=== PATIENT | male | born 1945 | race Two or more races ===

== ENCOUNTER → 2016-11-10 | Outpatient (CLI) | payer OTHER ==
--- NOTE | 2016-11-10 08:51 | KCIC ---
MRI Cervical Spine Without Contrast History: Degenerative disc disease of cervical spine, neck pain with right radiculopathy for 3 to 4 years Technique: Multiplanar, multi sequential noncontrast MR imaging was performed of the cervical spine. Comparison: None FINDINGS: There is some motion degradation most notable for axial images which somewhat limits accurate characterization of the neural foramina. There is grade 1 anterior spondylolisthesis C3-4, C5-C6, and C7-T1. Cervical vertebral body stature is overall adequate. There is advanced narrowing of the C4-5 intervertebral disc space at which is likely partial interbody fusion. There is also advanced degenerative disc disease at C6-7 and minimally at C5-C6 and C4-5. Cervical cord is not expanded. There is mild increased T2 and STIR signal abnormality of the cord at the C4-5 level without cord expansion, somewhat more defined appearance. There is no significant abnormality of the cervical medullary junction. There is mild cervical levoscoliosis. C2-C3: There is mild facet degenerative change. Spinal canal and neural foramina are adequate. C3-C4: There is partial uncovering of the posterior aspect of the disc due to spondylolisthesis with superimposed broad bulge/protrusion which extends slightly above the intervertebral disc space. There is buckling of the ligamentum flavum. There is effacement of ventral subarachnoid space and contact of the cord greater in the left lateral recess. Central canal is narrowed to 6 mm. There is bilateral facet ypertrophic change. There is fairly severe left and moderate to severe right neural foramina compromise. C4-C5: There are prominent posterior osteophytes which indent the ventral thecal sac, effacement of ventral subarachnoid space near ventral surface of cord. Central canal is narrowed to 7 mm. Right neural foramen is overall adequate. There is moderate to severe narrowing of the left neural foramen by osteophytes. C5-C6: There is posterior annular tear. There is very minimal posterior bulge. Central canal is borderline 10 mm. There is moderate to severe narrowing of the right neural foramen by osteophytes, left neural foramen overall adequate. C6-C7: There is fairly broad posterior protrusion. Central canal is minimally narrowed to 9 mm. There is moderate to severe narrowing left neural foramen with protrusion at the anterior margin proximally, also moderate to severe narrowing of the right neural foramen. C7-T1: Spinal canal and neural foramina are adequate. There is facet degenerative change. Impression: 1. There is advanced degenerative disc disease C6-7, also advanced narrowing of the C4-5 intervertebral disc space at which there is likely partial interbody fusion. 2. There is spinal stenosis to 6 mm at C3-4 with contact of the cord greater in the left lateral recess. There is slightly lesser degree of spinal stenosis at C4-5 by prominent posterior osteophytes, also mild spinal stenosis C6-7. 3. There is multilevel neural foramina compromise due to facet and uncovertebral degenerative change including more significant narrowing bilaterally at C3-4 and C6-7, on the left at C4-5, and on the right at C5-C6. 4. There is grade 1 anterior spondylolisthesis C3-4, C5-C6, and C7-T1. There is multilevel facet degenerative change. Electronically signed by: Carlito Baez MD (11/10/2016 8:47 AM) [facility]
== END | disposition home or self-care (01) ==
LOC: KCIC MRI 07:54
PROVIDERS: ATTEND Nurse Practitioner Gerontology
DX: M54.12 Radiculopathy, cervical region (principal); M50.323 Other cervical disc degeneration at C6-C7 level; M50.322 Other cervical disc degeneration at C5-C6 level; M50.321 Other cervical disc degeneration at C4-C5 level; M48.02 Spinal stenosis, cervical region; M43.12 Spondylolisthesis, cervical region
CPT/HCPCS: 72141

== ENCOUNTER → 2017-01-02 | Outpatient (CLI) | payer MEDICARE, OTHER ==
[~2017-01-02] MED LIST: ALLO100T PO; AMLO5TAB2 PO; ASPI-482 PO; CARV6.25 PO; ESCITALOPRAM OX10 MG PO; FAMO40TA4 PO; FAMO40TA57 PO; GABA-585 PO; OXYC-323 PO; SIMV10TA3 PO; TRIA15OI TP
[2017-01-02 11:35] LABS: BASO # 0.1 x10^3/uL (0.0-0.2); BASO % 1 % (0-3); EOS % 6 % (0-3); HEMOGLOBIN 13.1 g/dL (13.0-17.5); LYMPH # 2.2 x10^3/uL (1.0-4.8); LYMPH % 35 % (24-48); MEAN CORPUSCULAR HEMOGLOBIN 29 pg (25-35); MEAN CORPUSCULAR HGB CONC 32 g/dL (31-37); MEAN CORPUSCULAR VOLUME 90 fL (79-100); MONO % 8 % (0-9); NEUT % 50 % (31-73); PLATELET COUNT 248 x10^3/uL (140-400); RED BLOOD COUNT 4.55 x10^6/uL (4.30-5.70); RED CELL DISTRIBUTION WIDTH 14.6 % (11.5-14.5); WHITE BLOOD COUNT 6.4 x10^3/uL (4.0-11.0)
[2017-01-02 11:51] LABS: ALBUMIN 3.7 g/dL (3.4-5.0); ALBUMIN/GLOBULIN RATIO 0.8 (1.0-1.7); CALCIUM 9.2 mg/dL (8.5-10.1); CREATININE 1.3 mg/dL (0.7-1.3); GFR 54.1; POTASSIUM 4.1 mmol/L (3.5-5.1); TOTAL BILIRUBIN 0.4 mg/dL (0.2-1.0); TOTAL PROTEIN 8.4 g/dL (6.4-8.2)
[2017-01-02 11:54] LABS: PROTHROMBIN TIME PATIENT 12.5 SEC (11.7-14.0)
== END | disposition home or self-care (01) ==
LOC: SURGPAT 08:45
PROVIDERS: ATTEND Neurological Surgery
DX: Z01.818 Encounter for other preprocedural examination (principal); M48.02 Spinal stenosis, cervical region
CPT/HCPCS: 36415; 80053; 85025; 85610; 85730; 87641

== ENCOUNTER 2017-01-06 06:48 | Day surgery (SDC) | payer OTHER ==
[~2017-01-06] VITALS: Ht 167.6 cm; Wt 56.7 kg
[~2017-01-06 06:48] MED LIST changes: +BACITRACIN 50,000 UNIT in IV NORMAL SALINE 1000ML BAG 1,000 ML IRR ONE; +BUPIVACAINE-EPI 0.25%-1:200000 MPF 30 ML VIAL. ONE; +GELATIN SPONGE SIZE 100. ONE; +THROMBIN TOPICAL 20,000 UNIT SPRAY.SYRN KIT TP ONE
[2017-01-06] MEDS ORDERED: IV RINGERS,LACTATED 1000ML 1,000 ML IV SCH (07:00)
[2017-01-06] MEDS ORDERED: fentaNYL PF VIAL 100 MCG/2 ML VIAL IV PRN ×2 (07:00)
[2017-01-06] MEDS ORDERED: LIDOCAINE 1% PF 2 ML VIAL. ID PRN (07:00)
[2017-01-06] MEDS ORDERED: PROCHLORPERAZINE 10 MG/2 ML VIAL. IV PRN (07:00)
[2017-01-06] MEDS ORDERED: fentaNYL PF VIAL 100 MCG/2 ML VIAL ONE (08:23)
[2017-01-06] MEDS ORDERED: SUCCINYLCHOLINE 200 MG/10 ML VIAL. ONE (08:23)
[2017-01-06] MEDS ORDERED: PROPOFOL 50 ML IV ONE (08:23)
[2017-01-06] MEDS ORDERED: PHENYLEPHRINE 10 MG/ML VIAL. ONE (08:23)
[2017-01-06] MEDS ORDERED: REMIFENTANIL 2 MG VIAL. IV ONE (08:23)
[2017-01-06] MEDS ORDERED: PROPOFOL 20 ML IV ONE (08:23)
[2017-01-06] MEDS ORDERED: LIDOCAINE 2% PF Vial for OR 5 ML VIAL. ONE (08:23)
[2017-01-06] MEDS ORDERED: ROCURONIUM 50 MG/5 ML VIAL. ONE (08:33)
[2017-01-06 10:00] VITALS: BP 160/85
== END 2017-01-06 10:26 | disposition home or self-care (01) ==
LOC: SURG 06:48
PROVIDERS: ATTEND Neurological Surgery
DX: M48.02 Spinal stenosis, cervical region (principal); Z53.8 Procedure and treatment not carried out for other reasons; E78.00 Pure hypercholesterolemia, unspecified; I10 Essential (primary) hypertension; K21.9 Gastro-esophageal reflux disease without esophagitis; M19.91 Primary osteoarthritis, unspecified site; F32.9 Major depressive disorder, single episode, unspecified; F17.200 Nicotine dependence, unspecified, uncomplicated; Z88.8 Allergy status to other drugs, medicaments and biological substances; Z86.39 Personal history of other endocrine, nutritional and metabolic disease
CPT/HCPCS: 82962; J0330; J2704; J0690; J3010; J3490; J7030; J2001

== ENCOUNTER 2018-05-03 19:59 | Inpatient (IN) | payer OTHER ==
[~2018-05-03] VITALS: Ht 152.4 cm; Wt 59.1 kg
[~2018-05-03 19:59] MED LIST changes: +ALPR0.254 PO; +AMLO5TAB10 PO; -AMLO5TAB2 PO; -BACITRACIN 50,000 UNIT in IV NORMAL SALINE 1000ML BAG 1,000 ML IRR ONE; -BUPIVACAINE-EPI 0.25%-1:200000 MPF 30 ML VIAL. ONE; +ESCITALOPRAM OX20 MG PO; -GELATIN SPONGE SIZE 100. ONE; +METR500T PO; -OXYC-323 PO; +OXYC1TAB15 PO; -THROMBIN TOPICAL 20,000 UNIT SPRAY.SYRN KIT TP ONE
--- NOTE | 2018-05-03 20:49 | PHYS DOC ---
Past Medical History Past Medical History: Anxiety, GERD, Other Additional Past Medical Histor: DDD, GOUT, BLIND, [place] (JEFFERY HILARIO APRN) Past Surgical History: Other Additional Past Surgical Histo: L. ARM AMPUTATION (JEFFERY HILARIO APRN) Alcohol Use: None Drug Use: None (JEFFERY HILARIO APRN) Adult General Chief Complaint Chief Complaint: UPPER EXTREMITY PAIN HPI HPI Pt speaks Hmong- family at bedside translating. Pt is legally blind per his family. 73 y/o male presents to ER via POV for c/o generalized aches and rt arm pain. Per family pt has not been eating or drinking and is more fatigued. They deny pt with recent falls/injury. Pt is denying CP, SOA, or dizziness. Pt c/o abd pain denies N/V/D. Pt is Rx'd pain medications which family reports he has taken in past 2-3 days with pt having increase c/o pain. He was given tylenol [employer] at home. They deny pt has had fever/lethargy. (JEFFERY HILARIO APRN) Review of Systems Review of Systems Constitutional: Denies fever or chills [] HENT: Denies nasal congestion or sore throat [] Respiratory: Denies cough or shortness of breath [] Cardiovascular: Denies CP GI: Denies nausea, vomiting, bloody stools or diarrhea. Reports abd pain : Denies dysuria or hematuria [] Musculoskeletal: Denies back pain. Reports generalized body aches and rt upper arm. Integument: Denies rash or skin lesions [] Neurologic: Denies headache, focal weakness or sensory changes [] Endocrine: Denies polyuria or polydipsia [] All other systems were reviewed and found to be within normal limits, except as documented in this note. (JEFFERY HILARIO APRN) Current Medications Current Medications Current Medications Medications (Trade) Dose Ordered Sig/Noelle Start Time Stop Time Status Last Admin Dose Admin Sodium Chloride 1,000 ml @ 1,000 mls/hr 1X ONCE 05/03/18 21:00 05/03/18 21:59 DC 05/03/18 21:12 1,000 MLS/HR (ADAN EPSTEIN MD) Allergies Allergies Allergies Coded Allergies Type Severity Reaction Last Updated Verified hydrocodone Allergy Intermediate Rash 01/06/17 Yes (ADAN EPSTEIN MD) Physical Exam Physical Exam Constitutional: Well developed, well nourished, restless during the exam, non- toxic appearance. Fatigued appearance HENT: Normocephalic, atraumatic, bilateral ears normal, mucous membranes pink/ dry nose normal. [] Eyes: Pt legally blind bilat. eyes- glazed corneal appearance bilat, conjunctiva normal, no discharge. [] Neck: Normal range of motion, no tenderness, supple, no stridor. [] Cardiovascular: Heart rate regular rhythm, no murmur [] Lungs & Thorax: Bilateral breath sounds clear to auscultation. Resp. equal/ nonlabored Abdomen: Bowel sounds normal, soft, no tenderness on palp Skin: Warm, dry, no erythema, no rash. [] Back: No tenderness, no CVA tenderness. [] Extremities: No cyanosis, no clubbing, decreased ROM in rt arm with pt c/o pain - no palp. deformity 2+ radial w/brisk cap refill, no edema. 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 per family, normal motor function, normal sensory function, no focal deficits noted. [] Psychologic: Affect normal, judgement normal, restless (REFFITT,JEFFERY Camp APRN) Current Patient Data Vital Signs Vital Signs Date Time Temp Pulse Resp B/P (MAP) Pulse Ox O2 Delivery O2 Flow Rate FiO2 05/03/18 21:56 86 18 161/84 (109) 98 Room Air 05/03/18 20:15 99.0 99.0 (ADAN EPSTEIN MD) Lab Values Laboratory Tests Test 05/03/18 20:40 05/03/18 20:47 05/03/18 20:53 Urine Collection Type Unknown Urine Color Yellow Urine Clarity Clear Urine pH 6.0 Urine Specific [place] 1.020 Urine Protein 100 mg/dL (NEG-TRACE) Urine Glucose (UA) Negative mg/dL (NEG) Urine Ketones (Stick) Negative mg/dL (NEG) Urine Blood Small (NEG) Urine Nitrite Negative (NEG) Urine Bilirubin Negative (NEG) Urine Urobilinogen Dipstick 0.2 mg/dL (0.2 mg/dL) Urine Leukocyte Esterase Negative (NEG) Urine RBC 3-5 /HPF (0-2) Urine WBC 1-4 /HPF (0-4) Urine Squamous Epithelial Cells Occ /LPF Urine Bacteria 0 /HPF (0-FEW) Urine Hyaline Casts Few /HPF Urine Mucus Slight /LPF White Blood Count 7.3 x10^3/uL (4.0-11.0) Red Blood Count 4.53 x10^6/uL (4.30-5.70) Hemoglobin 13.2 g/dL (13.0-17.5) Hematocrit 40.0 % (39.0-53.0) Mean Corpuscular Volume 88 fL (79-100) Mean Corpuscular Hemoglobin 29 pg (25-35) Mean Corpuscular Hemoglobin Concent 33 g/dL (31-37) Red Cell Distribution Width 15.6 % (11.5-14.5) H Platelet Count 250 x10^3/uL (140-400) Neutrophils (%) (Auto) 84 % (31-73) H Lymphocytes (%) (Auto) 14 % (24-48) L Monocytes (%) (Auto) 3 % (0-9) Eosinophils (%) (Auto) 0 % (0-3) Basophils (%) (Auto) 0 % (0-3) Neutrophils # (Auto) 6.1 x10^3uL (1.8-7.7) Lymphocytes # (Auto) 1.0 x10^3/uL (1.0-4.8) Monocytes # (Auto) 0.2 x10^3/uL (0.0-1.1) Eosinophils # (Auto) 0.0 x10^3/uL (0.0-0.7) Basophils # (Auto) 0.0 x10^3/uL (0.0-0.2) Sodium Level 139 mmol/L (136-145) Potassium Level 3.2 mmol/L (3.5-5.1) L Chloride Level 102 mmol/L (98-107) Carbon Dioxide Level 24 mmol/L (21-32) Anion Gap 13 (6-14) Blood Urea Nitrogen 13 mg/dL (8-26) Creatinine 1.5 mg/dL (0.7-1.3) H Estimated GFR (Cockcroft-Gault) 45.6 BUN/Creatinine Ratio 9 (6-20) Glucose Level 185 mg/dL (70-99) H Calcium Level 9.4 mg/dL (8.5-10.1) Magnesium Level 1.9 mg/dL (1.8-2.4) Total Bilirubin 0.7 mg/dL (0.2-1.0) Aspartate Amino Transferase (AST) 23 U/L (15-37) Alanine Aminotransferase (ALT) 12 U/L (16-63) L Alkaline Phosphatase 67 U/L (46-116) Troponin I Quantitative < 0.017 ng/mL (0.000-0.055) Total Protein 9.0 g/dL (6.4-8.2) H Albumin 3.8 g/dL (3.4-5.0) Albumin/Globulin Ratio 0.7 (1.0-1.7) L Influenza Type A Antigen Negative (NEGATIVE) Influenza Type B Antigen Negative (NEGATIVE) Laboratory Tests 05/03/18 20:47 Laboratory Tests 05/03/18 20:47 (ADAN EPSTEIN MD) Lab Values Laboratory Tests Test 05/03/18 20:40 05/03/18 20:47 05/03/18 20:53 Urine Collection Type Unknown Urine Color Yellow Urine Clarity Clear Urine pH 6.0 Urine Specific [place] 1.020 Urine Protein 100 mg/dL (NEG-TRACE) Urine Glucose (UA) Negative mg/dL (NEG) Urine Ketones (Stick) Negative mg/dL (NEG) Urine Blood Small (NEG) Urine Nitrite Negative (NEG) Urine Bilirubin Negative (NEG) Urine Urobilinogen Dipstick 0.2 mg/dL (0.2 mg/dL) Urine Leukocyte Esterase Negative (NEG) Urine RBC 3-5 /HPF (0-2) Urine WBC 1-4 /HPF (0-4) Urine Squamous Epithelial Cells Occ /LPF Urine Bacteria 0 /HPF (0-FEW) Urine Hyaline Casts Few /HPF Urine Mucus Slight /LPF White Blood Count 7.3 x10^3/uL (4.0-11.0) Red Blood Count 4.53 x10^6/uL (4.30-5.70) Hemoglobin 13.2 g/dL (13.0-17.5) Hematocrit 40.0 % (39.0-53.0) Mean Corpuscular Volume 88 fL (79-100) Mean Corpuscular Hemoglobin 29 pg (25-35) Mean Corpuscular Hemoglobin Concent 33 g/dL (31-37) Red Cell Distribution Width 15.6 % (11.5-14.5) H Platelet Count 250 x10^3/uL (140-400) Neutrophils (%) (Auto) 84 % (31-73) H Lymphocytes (%) (Auto) 14 % (24-48) L Monocytes (%) (Auto) 3 % (0-9) Eosinophils (%) (Auto) 0 % (0-3) Basophils (%) (Auto) 0 % (0-3) Neutrophils # (Auto) 6.1 x10^3uL (1.8-7.7) Lymphocytes # (Auto) 1.0 x10^3/uL (1.0-4.8) Monocytes # (Auto) 0.2 x10^3/uL (0.0-1.1) Eosinophils # (Auto) 0.0 x10^3/uL (0.0-0.7) Basophils # (Auto) 0.0 x10^3/uL (0.0-0.2) Sodium Level 139 mmol/L (136-145) Potassium Level 3.2 mmol/L (3.5-5.1) L Chloride Level 102 mmol/L (98-107) Carbon Dioxide Level 24 mmol/L (21-32) Anion Gap 13 (6-14) Blood Urea Nitrogen 13 mg/dL (8-26) Creatinine 1.5 mg/dL (0.7-1.3) H Estimated GFR (Cockcroft-Gault) 45.6 BUN/Creatinine Ratio 9 (6-20) Glucose Level 185 mg/dL (70-99) H Calcium Level 9.4 mg/dL (8.5-10.1) Magnesium Level 1.9 mg/dL (1.8-2.4) Total Bilirubin 0.7 mg/dL (0.2-1.0) Aspartate Amino Transferase (AST) 23 U/L (15-37) Alanine Aminotransferase (ALT) 12 U/L (16-63) L Alkaline Phosphatase 67 U/L (46-116) Troponin I Quantitative < 0.017 ng/mL (0.000-0.055) Total Protein 9.0 g/dL (6.4-8.2) H Albumin 3.8 g/dL (3.4-5.0) Albumin/Globulin Ratio 0.7 (1.0-1.7) L Influenza Type A Antigen Negative (NEGATIVE) Influenza Type B Antigen Negative (NEGATIVE) Laboratory Tests 05/03/18 20:47 Laboratory Tests 05/03/18 20:47 (JEFFERY HILARIO ONLINE EDITOR) EKG EKG EKG obtained 05/03/18 at [address] Epstein Sinus rhythm Rate 72 No STEMI (JEFFERY HILARIO MANJINDER) Radiology/Procedures Radiology/Procedures PROCEDURE: CHEST AP ONLY AP portable chest radiograph 05/03/2018 Clinical History: Body aches and fatigue. An AP erect portable digital radiograph of the chest was obtained. Comparison study is dated 11/29/2011. Stabilizing rods and pedicle screws overlie the mid and lower cervical spine. The cardiac silhouette is mildly enlarged. Atherosclerotic calcification of the thoracic aorta is seen. The thoracic aorta is mildly tortuous. No acute pulmonary infiltrate is noted. No pneumothorax or pleural effusion is seen. The patient is post amputation of the left arm at the level of the proximal diaphysis of the left humerus, unchanged. Degenerative changes are seen involving the thoracic spine and both shoulders. IMPRESSION: No acute abnormality is seen. Electronically signed by: Lee Dyer MD (05/03/2018 11:01 PM) [facility] DICTATED and SIGNED BY: LEE DYER MD DATE: 05/03/18 7833 PROCEDURE: CT HEAD WO CONTRAST CT scan of the head without contrast 05/03/2018 Clinical History: Headaches. Technique: Unenhanced, contiguous, 5 mm axial sections were obtained through the head. One or more of the following individualized dose reduction techniques were utilized for this study: 1. Automated exposure control. 2. Adjustment of the mA and/or kV according to patient size. 3. Use of iterative reconstruction technique. Findings: There is generalized parenchymal atrophy. Areas of decreased attenuation are seen within the periventricular and subcortical white matter of both cerebral hemispheres consistent with areas of small vessel ischemic disease. No acute parenchymal abnormality is seen. No extra-axial fluid collection is noted. No skull fracture is seen. Impression: No acute intracranial abnormality is seen. Electronically signed by: Lee Dyer MD (05/03/2018 10:36 PM) [facility] DICTATED and SIGNED BY: LEE DYER MD DATE: 05/03/182230 (JEFFERY HILARIO APRN) Course & Med Decision Making Course & Med Decision Making Pertinent Labs and Imaging studies reviewed. (See chart for details) 2149: Pt started shaking and is more restless. On re-exam he is afebrile 98.7. He does continue to c/o LOPEZ as he had at time of initial exam. He received IV flds and so uncertain if flds have caused him to become cold as he had not been shaking as bad during initial exam. He is still A&O to his norm per family at bedside and is answering questions they are asking. There is a language barrier making it difficult to fully understand what pt is experiencing. Will obtain a CT for further eval. Will order dose of benedryl and Decadron for LOPEZ. Pt's flu test was neg. Chest xray was viewed by Dr. Epstein no obvious acute findings. Labs with K+ at 3.2 will provide 40 meq K+ PO. Cr at 1.5- up just slightly from previous result of 1.4 pt was given IV fld while in the ER as family reported he had not been eating or drinking. Discussed admission for further care and monitoring- family is agreeable with plan. Test results were discussed with family- EKG with no acute ST elevation/STEMI and troponin <0.017. UA with 100 protein neg. ketones/leuks trace blood. Chest xray with no acute findings- degenerative changes in rt shoulder noted. 2219: Spoke with Dr. Torre who is commercial front load driver for Dr. Cheek pt's PCP- discussed pt' s case and admit plan. Pt's head CT with no acute findings for hemorrhage/stroke. (JEFFERY HILARIO APRN) Course & Med Decision Making Staff Physician Addendum: I was working in the ER during the course of this patient's visit. I was available for consultation as needed, but I was not directly involved in the care of this patient. (ADAN EPSTEIN MD) Dragon Disclaimer Dragon Disclaimer This electronic medical record was generated, in whole or in part, using a voice recognition dictation system. (JEFFERY HILARIO APRN) Departure Departure Impression: Primary Impression: Decrease in appetite Additional Impression: Weakness Disposition: 09 ADMITTED INPATIENT Admitting Physician: Dania Cheek (JEFFERY HILARIO APRN) Condition: STABLE Referrals: DANIA CHEEK MD (PCP) Problem Qualifiers JEFFERY HILARIO APRN May 03, 2018 20:49 ADAN EPSTEIN MD May 05, 2018 00:29
[2018-05-03 20:52] LABS: BILIRUBIN,URINE NEGATIVE (NEG); CLARITY,URINE CLEAR; COLOR,URINE YELLOW; NITRITE,URINE NEGATIVE (NEG); PROTEIN,URINE 100 mg/dL (NEG-TRACE); UROBILINOGEN,URINE 0.2 mg/dL (0.2 mg/dL)
[2018-05-03] MEDS ORDERED: IV NORMAL SALINE 1000ML BAG 1,000 ML IV ONE (21:00)
[2018-05-03 21:03] LABS: BACTERIA,URINE 0 /HPF (0-FEW)
[2018-05-03 21:04] LABS: HYALINE CASTS, URINE FEW /HPF; SQUAMOUS EPITHELIAL CELL,UR OCC /LPF
[2018-05-03 21:15] LABS: INFLUENZA A PATIENT NEGATIVE (NEGATIVE); INFLUENZA B PATIENT NEGATIVE (NEGATIVE)
[2018-05-03 21:28] LABS: BASO % 0 % (0-3); EOS % 0 % (0-3); HEMOGLOBIN 13.2 g/dL (13.0-17.5); LYMPH % 14 % (24-48); MEAN CORPUSCULAR HEMOGLOBIN 29 pg (25-35); MEAN CORPUSCULAR HGB CONC 33 g/dL (31-37); MEAN CORPUSCULAR VOLUME 88 fL (79-100); MONO # 0.2 x10^3/uL (0.0-1.1); MONO % 3 % (0-9); NEUT # 6.1 x10^3uL (1.8-7.7); NEUT % 84 % (31-73); PLATELET COUNT 250 x10^3/uL (140-400); RED BLOOD COUNT 4.53 x10^6/uL (4.30-5.70); RED CELL DISTRIBUTION WIDTH 15.6 % (11.5-14.5); WHITE BLOOD COUNT 7.3 x10^3/uL (4.0-11.0)
[2018-05-03 21:40] LABS: CALCIUM 9.4 mg/dL (8.5-10.1); CREATININE 1.5 mg/dL (0.7-1.3); GFR 45.6; POTASSIUM 3.2 mmol/L (3.5-5.1)
[2018-05-03 21:46] LABS: ALBUMIN 3.8 g/dL (3.4-5.0); ALBUMIN/GLOBULIN RATIO 0.7 (1.0-1.7); MAGNESIUM 1.9 mg/dL (1.8-2.4); TOTAL BILIRUBIN 0.7 mg/dL (0.2-1.0)
[2018-05-03] MEDS ORDERED: ACETAMINOPHEN 325 MG TABLET. PO PRN (22:30)
[2018-05-03] MEDS ORDERED: ONDANSETRON PF 4 MG/2 ML VIAL. IV PRN (22:30)
[2018-05-03] MEDS ORDERED: DEXAMETHASONE SOD PHOS 20 MG/5 ML VIAL. IV ONE (22:30)
[2018-05-03] MEDS ORDERED: diphenhydrAMINE 50 MG/ML VIAL IVP ONE (22:30)
--- NOTE | 2018-05-03 22:39 | RAD ---
CT scan of the head without contrast 05/03/2018 Clinical History: Headaches. Technique: Unenhanced, contiguous, 5 mm axial sections were obtained through the head. One or more of the following individualized dose reduction techniques were utilized for this study: 1. Automated exposure control. 2. Adjustment of the mA and/or kV according to patient size. 3. Use of iterative reconstruction technique. Findings: There is generalized parenchymal atrophy. Areas of decreased attenuation are seen within the periventricular and subcortical white matter of both cerebral hemispheres consistent with areas of small vessel ischemic disease. No acute parenchymal abnormality is seen. No extra-axial fluid collection is noted. No skull fracture is seen. Impression: No acute intracranial abnormality is seen. Electronically signed by: Lee Dyer MD (05/03/2018 10:36 PM) [facility]
[2018-05-03] MEDS ORDERED: POTASSIUM CHLORIDE 20 MEQ TABLET.ER. PO ONE (23:00)
--- NOTE | 2018-05-03 23:04 | RAD ---
AP portable chest radiograph 05/03/2018 Clinical History: Body aches and fatigue. An AP erect portable digital radiograph of the chest was obtained. Comparison study is dated 11/29/2011. Stabilizing rods and pedicle screws overlie the mid and lower cervical spine. The cardiac silhouette is mildly enlarged. Atherosclerotic calcification of the thoracic aorta is seen. The thoracic aorta is mildly tortuous. No acute pulmonary infiltrate is noted. No pneumothorax or pleural effusion is seen. The patient is post amputation of the left arm at the level of the proximal diaphysis of the left humerus, unchanged. Degenerative changes are seen involving the thoracic spine and both shoulders. IMPRESSION: No acute abnormality is seen. Electronically signed by: Lee Dyer MD (05/03/2018 11:01 PM) [facility]
[2018-05-03 23:45] VITALS: BP 165/93
[2018-05-04] MEDS ORDERED: MORP30TA3 PO (01:03)
[2018-05-04] MEDS ORDERED: oxyCODONE/APAP 5/325 1 TAB TABLET PO PRN (01:15)
[2018-05-04] MEDS: ALPRAZolam 0.25 MG TABLET PO PRN ×3 (01:27→11:42)
[2018-05-04 03:26] VITALS: BP 149/95
[2018-05-04 05:44] LABS: BASO % 0 % (0-3); EOS % 0 % (0-3); HEMATOCRIT 38.6 % (39.0-53.0); HEMOGLOBIN 12.8 g/dL (13.0-17.5); LYMPH % 11 % (24-48); MEAN CORPUSCULAR HEMOGLOBIN 30 pg (25-35); MEAN CORPUSCULAR HGB CONC 33 g/dL (31-37); MEAN CORPUSCULAR VOLUME 90 fL (79-100); MONO % 1 % (0-9); NEUT # 7.8 x10^3uL (1.8-7.7); NEUT % 88 % (31-73); PLATELET COUNT 226 x10^3/uL (140-400); RED CELL DISTRIBUTION WIDTH 16.6 % (11.5-14.5); WHITE BLOOD COUNT 8.9 x10^3/uL (4.0-11.0)
[2018-05-04 05:59] LABS: CALCIUM 9.3 mg/dL (8.5-10.1); CREATININE 1.5 mg/dL (0.7-1.3); GFR 45.6; POTASSIUM 3.7 mmol/L (3.5-5.1)
[2018-05-04 06:55] VITALS: BP 174/72
--- NOTE | 2018-05-04 07:43 | EKG ---
[facility] [address] [place] [address] Test Date: 2018-05-03 Test Time: 20:50:47 Pat Name: TRACEY PLATT Department: Room: [facility] Gender: Health It Specialist: : 1945 Requested By: JEFFERY HILARIO Order Number: [id number] Reading MD: Hakeme Weaver Measurements Intervals [place] Rate: P: SC: QRS: QRSD: T: QT: QTc: Interpretive Statements Compared to ECG 02/07/2017 05:30:58 No significant changes Electronically Signed On 05-05-2018 9:10:16 [employer] by Hakeem Weaver
[2018-05-04 08:44] LABS: % LYMPHS 16 % (24-48); % SEGS 84 % (35-66); ANISOCYTOSIS SLIGHT; PLT ESTIMATE ADEQUATE (ADEQUATE)
[2018-05-04] MEDS ORDERED: IV RINGERS,LACTATED 1000ML 1,000 ML IV SCH (08:56)
[2018-05-04] MEDS ORDERED: MORPHINE ER 30 MG TABLET.ER PO SCH (09:00)
[2018-05-04] MEDS ORDERED: ASPIRIN ENTERIC COATED 81 MG TABLET.DR. PO SCH (09:00)
[2018-05-04] MEDS ORDERED: TRIAMCINOLONE ACETONIDE 0.1% TOPICAL OINTMENT 15GM TUBE. TP PRN (09:00)
[2018-05-04] MEDS ORDERED: ALLOPURINOL 100 MG TABLET. PO SCH (09:00)
[2018-05-04] MEDS ORDERED: GABAPENTIN 100 MG CAPSULE. PO PRN (09:00)
[2018-05-04] MEDS ORDERED: CITALOPRAM 20 MG TABLET. PO SCH (09:00)
[2018-05-04] MEDS ORDERED: 0.9 % SODIUM CHLORIDE 10 ML DISP.SYRIN. IV PRN (09:00)
[2018-05-04] MEDS ORDERED: amLODIPine BESYLATE 5 MG TABLET PO SCH (09:00)
[2018-05-04] MEDS ORDERED: CARVEDILOL 6.25 MG TABLET. PO SCH (09:00)
[2018-05-04] MEDS ORDERED: FAMOTIDINE 20 MG TABLET. PO SCH (09:00)
--- NOTE | 2018-05-04 09:03 | PDOC1 ---
History and Physical Date of Admission Date of Admission He is visually and hearing impaired but brought to ER with generalized weakness and right arm pain and admitted. He is unable to give a history and family with him just arrived and has no additional helpful information. Apparently there has not been and recent falls or trauma. Lab and imaging studies to date are not significantly abnormal Past Medical History Cardiovascular: HTN Pulmonary: Other GI: Constipation, GERD, Other Heme/Onc: No pertinent hx Hepatobiliary: Cholelithiasis Psych: Depression Rheumatologic: Other Infectious disease: No pertinent hx Renal/: Chronic renal insuff Endocrine: Diabetes Past Surgical History Past Surgical History: Other Social History ALCOHOL: occassional Drugs: None Current Medications Current Medications Current Medications Medications (Trade) Dose Ordered Sig/Noelle Start Time Stop Time Status Last Admin Dose Admin Acetaminophen (Tylenol) 650 mg PRN Q4HRS PRN 05/03/18 22:30 05/04/18 22:29 05/04/18 01:27 650 MG Allopurinol (Zyloprim) 200 mg DAILY 05/04/18 09:00 05/04/18 08:11 200 MG Alprazolam (Xanax) 0.25 mg TID PRN PRN 05/03/18 22:30 05/04/18 01:27 0.25 MG Amlodipine Besylate (Norvasc) 5 mg DAILY 05/04/18 09:00 05/04/18 08:11 5 MG Aspirin (Ecotrin) 81 mg DAILY 05/04/18 09:00 Carvedilol (Coreg) 6.25 mg BIDWMEALS 05/04/18 09:00 Citalopram Hydrobromide (CeleXA) 40 mg DAILY 05/04/18 09:00 Dexamethasone Sodium Phosphate (Decadron) 10 mg 1X ONCE 05/03/18 22:30 05/03/18 22:31 DC 05/03/18 22:31 10 MG Diphenhydramine HCl (Benadryl) 12.5 mg 1X ONCE 05/03/18 22:30 05/03/18 22:31 DC 05/03/18 22:31 12.5 MG Famotidine (Pepcid) 40 mg DAILY 05/04/18 09:00 Gabapentin (Neurontin) 100 mg PRN Q8HRS PRN 05/04/18 09:00 Morphine Sulfate (Ms Contin) 30 mg BID 05/04/18 09:00 05/04/18 08:11 30 MG Ondansetron HCl (Zofran) 4 mg PRN Q8HRS PRN 05/03/18 22:30 05/04/18 22:29 05/03/18 23:08 4 MG Oxycodone/ Acetaminophen (Percocet 5/325) 1 tab PRN Q6HRS PRN 05/04/18 01:15 05/04/18 01:27 1 TAB Potassium Chloride (Klor-Con) 40 meq 1X ONCE 05/03/18 23:00 05/03/18 23:01 DC 05/03/18 22:31 40 MEQ Ringer's Solution 1,000 ml @ 100 mls/hr Q10H 05/04/18 08:56 UNV Simvastatin (Zocor) 20 mg HS 05/04/18 21:00 Sodium Chloride (Normal Saline Flush) 3 ml QSHIFT PRN 05/04/18 09:00 UNV Triamcinolone Acetonide (Kenalog) 1 sumit TID PRN 05/04/18 09:00 Allergies Allergies Allergies Coded Allergies Type Severity Reaction Last Updated Verified hydrocodone Allergy Intermediate Rash 01/06/17 Yes ROS Review of System CONSTITUTIONAL: No fever or chills EYES: No recent changes SKIN: No rash or itching CARDIOVASCULAR: No chest pain, syncope, palpitations, or edema RESPIRATORY: No SOB or cough GASTROINTESTINAL: No nausea, vomiting or abdominal pain NEUROLOGICAL: No headaches or weakness ENDOCRINE: No cold or heat intolerance GENITOURINARY: No urgency or frequency of urination MUSCULOSKELETAL: No back pain or joint pain LYMPHATICS: No enlarged lymph nodes PSYCHIATRIC: No anxiety or depression Physical Exam Physical Exam GEN.: No apparent distress. Alert and oriented. HEENT: Head is normocephalic, atraumatic NECK: Supple. LUNGS: Clear to auscultation. HEART: RRR, S1, S2 present. Peripheral pulses intact ABDOMEN: Soft, nontender. Positive bowel sounds. EXTREMITIES: Without any cyanosis. NEUROLOGIC: Normal speech, normal tone PSYCHIATRIC: Normal affect, normal mood. SKIN: No ulcerations Vitals Vitals Vital Signs Date Time Temp Pulse Resp B/P (MAP) Pulse Ox O2 Delivery O2 Flow Rate FiO2 05/04/18 08:11 93 Room Air 05/04/18 08:11 78 174/72 05/04/18 06:55 98.4 17 98.4 Labs Labs Laboratory Tests Test 05/03/18 20:40 05/03/18 20:47 05/03/18 20:53 05/04/18 05:00 Urine Collection Type Unknown Urine Color Yellow Urine Clarity Clear Urine pH 6.0 Urine Specific [place] 1.020 Urine Protein 100 mg/dL (NEG-TRACE) Urine Glucose (UA) Negative mg/dL (NEG) Urine Ketones (Stick) Negative mg/dL (NEG) Urine Blood Small (NEG) Urine Nitrite Negative (NEG) Urine Bilirubin Negative (NEG) Urine Urobilinogen Dipstick 0.2 mg/dL (0.2 mg/dL) Urine Leukocyte Esterase Negative (NEG) Urine RBC 3-5 /HPF (0-2) Urine WBC 1-4 /HPF (0-4) Urine Squamous Epithelial Cells Occ /LPF Urine Bacteria 0 /HPF (0-FEW) Urine Hyaline Casts Few /HPF Urine Mucus Slight /LPF White Blood Count 7.3 x10^3/uL (4.0-11.0) 8.9 x10^3/uL (4.0-11.0) Red Blood Count 4.53 x10^6/uL (4.30-5.70) 4.30 x10^6/uL (4.30-5.70) Hemoglobin 13.2 g/dL (13.0-17.5) 12.8 g/dL (13.0-17.5) Hematocrit 40.0 % (39.0-53.0) 38.6 % (39.0-53.0) Mean Corpuscular Volume 88 fL (79-100) 90 fL (79-100) Mean Corpuscular Hemoglobin 29 pg (25-35) 30 pg (25-35) Mean Corpuscular Hemoglobin Concent 33 g/dL (31-37) 33 g/dL (31-37) Red Cell Distribution Width 15.6 % (11.5-14.5) 16.6 % (11.5-14.5) Platelet Count 250 x10^3/uL (140-400) 226 x10^3/uL (140-400) Neutrophils (%) (Auto) 84 % (31-73) 88 % (31-73) Lymphocytes (%) (Auto) 14 % (24-48) 11 % (24-48) Monocytes (%) (Auto) 3 % (0-9) 1 % (0-9) Eosinophils (%) (Auto) 0 % (0-3) 0 % (0-3) Basophils (%) (Auto) 0 % (0-3) 0 % (0-3) Neutrophils # (Auto) 6.1 x10^3uL (1.8-7.7) 7.8 x10^3uL (1.8-7.7) Lymphocytes # (Auto) 1.0 x10^3/uL (1.0-4.8) 1.0 x10^3/uL (1.0-4.8) Monocytes # (Auto) 0.2 x10^3/uL (0.0-1.1) 0.0 x10^3/uL (0.0-1.1) Eosinophils # (Auto) 0.0 x10^3/uL (0.0-0.7) 0.0 x10^3/uL (0.0-0.7) Basophils # (Auto) 0.0 x10^3/uL (0.0-0.2) 0.0 x10^3/uL (0.0-0.2) Sodium Level 139 mmol/L (136-145) 142 mmol/L (136-145) Potassium Level 3.2 mmol/L (3.5-5.1) 3.7 mmol/L (3.5-5.1) Chloride Level 102 mmol/L (98-107) 106 mmol/L (98-107) Carbon Dioxide Level 24 mmol/L (21-32) 20 mmol/L (21-32) Anion Gap 13 (6-14) 16 (6-14) Blood Urea Nitrogen 13 mg/dL (8-26) 13 mg/dL (8-26) Creatinine 1.5 mg/dL (0.7-1.3) 1.5 mg/dL (0.7-1.3) Estimated GFR (Cockcroft-Gault) 45.6 45.6 BUN/Creatinine Ratio 9 (6-20) Glucose Level 185 mg/dL (70-99) 179 mg/dL (70-99) Calcium Level 9.4 mg/dL (8.5-10.1) 9.3 mg/dL (8.5-10.1) Magnesium Level 1.9 mg/dL (1.8-2.4) Total Bilirubin 0.7 mg/dL (0.2-1.0) Aspartate Amino Transf (AST/SGOT) 23 U/L (15-37) Alanine Aminotransferase (ALT/SGPT) 12 U/L (16-63) Alkaline Phosphatase 67 U/L (46-116) Troponin I Quantitative < 0.017 ng/mL (0.000-0.055) Total Protein 9.0 g/dL (6.4-8.2) Albumin 3.8 g/dL (3.4-5.0) Albumin/Globulin Ratio 0.7 (1.0-1.7) Influenza Type A Antigen Negative (NEGATIVE) Influenza Type B Antigen Negative (NEGATIVE) Segmented Neutrophils % 84 % (35-66) Lymphocytes % 16 % (24-48) Platelet Estimate Adequate (ADEQUATE) Anisocytosis Slight Laboratory Tests Test 05/03/18 20:40 05/03/18 20:47 05/03/18 20:53 05/04/18 05:00 Urine Collection Type Unknown Urine Color Yellow Urine Clarity Clear Urine pH 6.0 Urine Specific [place] 1.020 Urine Protein 100 mg/dL (NEG-TRACE) Urine Glucose (UA) Negative mg/dL (NEG) Urine Ketones (Stick) Negative mg/dL (NEG) Urine Blood Small (NEG) Urine Nitrite Negative (NEG) Urine Bilirubin Negative (NEG) Urine Urobilinogen Dipstick 0.2 mg/dL (0.2 mg/dL) Urine Leukocyte Esterase Negative (NEG) Urine RBC 3-5 /HPF (0-2) Urine WBC 1-4 /HPF (0-4) Urine Squamous Epithelial Cells Occ /LPF Urine Bacteria 0 /HPF (0-FEW) Urine Hyaline Casts Few /HPF Urine Mucus Slight /LPF White Blood Count 7.3 x10^3/uL (4.0-11.0) 8.9 x10^3/uL (4.0-11.0) Red Blood Count 4.53 x10^6/uL (4.30-5.70) 4.30 x10^6/uL (4.30-5.70) Hemoglobin 13.2 g/dL (13.0-17.5) 12.8 g/dL (13.0-17.5) Hematocrit 40.0 % (39.0-53.0) 38.6 % (39.0-53.0) Mean Corpuscular Volume 88 fL (79-100) 90 fL (79-100) Mean Corpuscular Hemoglobin 29 pg (25-35) 30 pg (25-35) Mean Corpuscular Hemoglobin Concent 33 g/dL (31-37) 33 g/dL (31-37) Red Cell Distribution Width 15.6 % (11.5-14.5) 16.6 % (11.5-14.5) Platelet Count 250 x10^3/uL (140-400) 226 x10^3/uL (140-400) Neutrophils (%) (Auto) 84 % (31-73) 88 % (31-73) Lymphocytes (%) (Auto) 14 % (24-48) 11 % (24-48) Monocytes (%) (Auto) 3 % (0-9) 1 % (0-9) Eosinophils (%) (Auto) 0 % (0-3) 0 % (0-3) Basophils (%) (Auto) 0 % (0-3) 0 % (0-3) Neutrophils # (Auto) 6.1 x10^3uL (1.8-7.7) 7.8 x10^3uL (1.8-7.7) Lymphocytes # (Auto) 1.0 x10^3/uL (1.0-4.8) 1.0 x10^3/uL (1.0-4.8) Monocytes # (Auto) 0.2 x10^3/uL (0.0-1.1) 0.0 x10^3/uL (0.0-1.1) Eosinophils # (Auto) 0.0 x10^3/uL (0.0-0.7) 0.0 x10^3/uL (0.0-0.7) Basophils # (Auto) 0.0 x10^3/uL (0.0-0.2) 0.0 x10^3/uL (0.0-0.2) Sodium Level 139 mmol/L (136-145) 142 mmol/L (136-145) Potassium Level 3.2 mmol/L (3.5-5.1) 3.7 mmol/L (3.5-5.1) Chloride Level 102 mmol/L (98-107) 106 mmol/L (98-107) Carbon Dioxide Level 24 mmol/L (21-32) 20 mmol/L (21-32) Anion Gap 13 (6-14) 16 (6-14) Blood Urea Nitrogen 13 mg/dL (8-26) 13 mg/dL (8-26) Creatinine 1.5 mg/dL (0.7-1.3) 1.5 mg/dL (0.7-1.3) Estimated GFR (Cockcroft-Gault) 45.6 45.6 BUN/Creatinine Ratio 9 (6-20) Glucose Level 185 mg/dL (70-99) 179 mg/dL (70-99) Calcium Level 9.4 mg/dL (8.5-10.1) 9.3 mg/dL (8.5-10.1) Magnesium Level 1.9 mg/dL (1.8-2.4) Total Bilirubin 0.7 mg/dL (0.2-1.0) Aspartate Amino Transf (AST/SGOT) 23 U/L (15-37) Alanine Aminotransferase (ALT/SGPT) 12 U/L (16-63) Alkaline Phosphatase 67 U/L (46-116) Troponin I Quantitative < 0.017 ng/mL (0.000-0.055) Total Protein 9.0 g/dL (6.4-8.2) Albumin 3.8 g/dL (3.4-5.0) Albumin/Globulin Ratio 0.7 (1.0-1.7) Influenza Type A Antigen Negative (NEGATIVE) Influenza Type B Antigen Negative (NEGATIVE) Segmented Neutrophils % 84 % (35-66) Lymphocytes % 16 % (24-48) Platelet Estimate Adequate (ADEQUATE) Anisocytosis Slight VTE Prophylaxis Ordered VTE Prophylaxis Devices: No VTE Pharmacological Prophylaxi: Yes Assessment/Plan Assessment/Plan see dictation, combined H&P and DC summary # [id number] Ramiro WOODRUFF MD May 04, 2018 09:03
--- NOTE | 2018-05-04 10:29 | NUR ---
Patient refusing to wear parts runner. 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 Monitor removed from patient as patient self removed when staff not present.
--- NOTE | 2018-05-04 13:33 | RAD ---
Right shoulder, 3 views, 05/04/2018: HISTORY: Pain The bony structures are demineralized. No fracture or dislocation is evident. There is mild degenerative change at the AC joint. A density projected over the right humeral head on one view is probably an artifact as it was not visible on a recent chest radiograph. Surgical rods and screws are present in the lower cervical spine. IMPRESSION: 1. Mild degenerative change. 2. No acute bony abnormality is detected. Right elbow, 3 views, 05/04/2018: HISTORY: Pain No fracture or dislocation is identified. No joint effusion is evident. IMPRESSION: No acute right elbow abnormality is detected. Right forearm, 2 views, 05/04/2018: There is mild patchy bony demineralization. No fracture or destructive bony lesion is seen. IMPRESSION: 1. Demineralization. 2. No acute bony abnormality is detected. Electronically signed by: Flavio Joshua MD (05/04/2018 1:30 PM) [facility]
[2018-05-04 15:05] VITALS: BP 160/95
[2018-05-04 15:20] VITALS: BP 160/95
--- NOTE | 2018-05-04 16:21 | HP ---
ADMIT DATE: 05/04/2018 ADMISSION DIAGNOSIS: Weakness. DISCHARGE DIAGNOSIS: Weakness. HISTORY OF PRESENT ILLNESS AND HOSPITAL COURSE: This is a 73-year-old male who was initially brought to the Emergency Room because of some right arm pain. Family noted that he has been shaking and restless, having a headache and general malaise and weakness. He saw Dr. Cheek in February and was noted to have right arm pain when his blood pressure was taken. He was referred to Ortho and had an appointment with them in March, but was unable to keep it. He is both visually and hearing impaired and additional history is obtained from his office chart and from a family member who is in the room with him. The family member was not present yesterday when he was initially brought to the ER, does not really have much more history. Talking with Dr. Cheek, he has a history of degenerative disk disease of his C-spine, osteoarthritis, hypertension, hyperlipidemia and chronic kidney disease. SURGICAL HISTORY: He had a left upper amputation in the [place]. He has had open reduction internal fixation of fractures of both lower legs also while in [place]. He is on chronic pain medication with MS Contin added to his medicines last year. HOME MEDICATIONS: Include Coreg 6.25 mg b.i.d., gabapentin 100 mg every 8 hours, aspirin 81 mg daily, triamcinolone acetonide topical 0.1% cream b.i.d. as needed, famotidine 40 mg at bedtime, simvastatin 20 mg at bedtime, amlodipine 5 mg daily, allopurinol 100 mg 2 tabs b.i.d., MS Contin 30 mg extended release every 12 hours, Percocet 5/325 one every 6 hours p.r.n. pain, Lexapro 20 mg daily. ALLERGIES: HE HAS AN ALLERGY TO HYDROCODONE, WHICH CAUSES A RASH. ADDITIONAL SURGICAL HISTORY: He had a laparoscopic cholecystectomy in 2016 and a cervical laminectomy May last year. FAMILY HISTORY: Both parents are . SOCIAL HISTORY: He is a former smoker, having quit in 2007. He does not use alcohol. He is , lives with his and daughter. He is from [facility]. REVIEW OF SYSTEMS: Best as I can obtain: CONSTITUTIONAL: No fever or chills. HEENT: No change in chronic vision and hearing loss. CARDIAC: No apparent chest pain. PULMONARY: No recent cough. GASTROINTESTINAL: No recent vomiting or diarrhea. SKIN: Chronic dermatitis. ORTHOPEDIC: Chronic osteoarthritis and degenerative joint disease. While in the Emergency Room, he did receive some IV fluids. He received a dose of Benadryl and Decadron for his headache. His CT imaging of his head was negative. Chest x-ray was negative. Flu testing was negative. Potassium slightly low at 3.2 and he was given a p.o. dose of 40 mEq. His creatinine is at his baseline and did not change significantly overnight after the fluids. PHYSICAL EXAMINATION: VITAL SIGNS: Afebrile. Blood pressures range from 174/72-160/95, heart rate has been normal, room air oxygen saturations in the mid upper 90s. GENERAL: He is lying in bed with blankets on. He is awake and alert and cooperative with family member present. He is hard of hearing and visually impaired. Sinuses are nontender. Mucous membranes are moist. NECK: Supple, no JVD or bruits noted. HEART: Regular rate and rhythm without murmur noted. LUNGS: Clear to auscultation. ABDOMEN: Soft, nondistended, nontender. EXTREMITIES: Without clubbing, cyanosis or edema. SKIN: Shows some dry skin on his lower extremities with some scratch [place]. No cellulitis. His left arm is amputated. IVs in his right arm. No bruising is noted. He is able to lay on his right arm without any obvious discomfort. LABORATORY DATA: CBC: Dropped his hemoglobin from 13.2-12.8 with hydration, but otherwise is nonspecific. Chemistries show potassium has gone up from 3.2-3.7. Creatinine stayed stable at 1.5. Glucose has dropped from 185-179. Total protein slightly high at 9.0, but his albumin is normal at 3.8. Urinalysis shows a small amount of blood, but otherwise is negative. Serology is negative for influenza type A and B. IMAGING STUDIES: X-ray of the right shoulder, right elbow and right forearm showed demineralization of the forearm with some degenerative change in the shoulder, but no acute finding. Surgical liudmila and screws are noted in the lower cervical spine. CT head shows generalized parenchymal atrophy. Areas of decreased attenuation are noted in the periventricular and subcortical white matter of both cerebral hemispheres consistent with areas of small vessel ischemic disease, but no acute abnormalities are noted. Chest x-ray shows a mildly enlarged cardiac silhouette with atherosclerotic calcification of the thoracic aorta, which is mildly tortuous. Degenerative changes are noted in the thoracic spine and shoulders and note is made of his left arm amputation at the proximal diaphysis of the left humerus. ASSESSMENT: 1. Weakness. 2. Hypokalemia. 3. Mild anemia, likely of chronic disease. 4. Osteoarthritis. 5. Chronic pain. 6. Hypertension. 7. Stage 3 chronic kidney disease. 8. Degenerative disk disease of the C-spine, status post cervical laminectomy less than a year ago. PLAN: He was admitted overnight, hydrated. He has had a little bit of agitation while here, he had normal dose of Xanax that his had resolved that. PT and OT have seen him and evaluated him and feel he is at his baseline. His potassium has been replaced. His chronic pain is under control with his medicines. He is encouraged to follow up with Orthopedics regarding his shoulder. His routine meds will be continued. He will be discharged home to the care of his family. Follow up with Dr. Cheek in a week or two. DIET: Cardiac. ACTIVITY: As tolerated. W Parrish WOODRUFF MD DR: ANN-MARIE/michel JOB#: [id number] / [id number]
--- NOTE | 2018-05-04 17:06 | NUR ---
Discharge Note: [facility] [address] [place] [address] Discharge instructions and discharge home medications reviewed with Family Member and a copy given. All questions have been answered and understanding verbalized. The following instructions and handouts were given: Diet, activity, medication list and follow up instructions provided to family. Discontinued lines and drains: Peripheral IV discontinued and catheter intact. Patient discharged to Home or Self Care with Family Member via Wheelchair
[2018-05-04] MEDS ORDERED: SIMVASTATIN 10 MG TABLET PO SCH (21:00)
== END 2018-05-04 15:58 | disposition home or self-care (01) | DRG 641 ==
LOC: ER 19:59 → 6 SOUTH 22:20
PROVIDERS: ADMIT Family Medicine; ATTEND Family Medicine
DX: E87.6 Hypokalemia (principal); R53.1 Weakness; I12.9 Hypertensive chronic kidney disease with stage 1 through stage 4 chronic kidney disease, or unspecified chronic kidney disease; N18.3 Chronic kidney disease, stage 3 (moderate); E11.22 Type 2 diabetes mellitus with diabetic chronic kidney disease; D63.8 Anemia in other chronic diseases classified elsewhere; G89.29 Other chronic pain; E78.5 Hyperlipidemia, unspecified; H54.8 Legal blindness, as defined in USA; H91.90 Unspecified hearing loss, unspecified ear; M19.90 Unspecified osteoarthritis, unspecified site; K21.9 Gastro-esophageal reflux disease without esophagitis; F32.9 Major depressive disorder, single episode, unspecified; F41.9 Anxiety disorder, unspecified; M10.9 Gout, unspecified; Z87.891 Personal history of nicotine dependence; Z88.8 Allergy status to other drugs, medicaments and biological substances
CPT/HCPCS: 36415; 70450; 71045; 73030; 73070; 73090; 80048; 80053; 81001; 83735; 84484; 85007; 85025; 87804; 93005; 96361; 96374; 96375; J1100; J1200; J2405; J7030; 99285-25

== ENCOUNTER → 2018-08-23 | Outpatient (CLI) | payer OTHER ==
[~2018-08-23] MED LIST changes: +MORP30TA3 PO
--- NOTE | 2018-08-23 15:14 | RAD ---
MR of the right shoulder HISTORY: Chronic right shoulder pain. TECHNIQUE: Routine multiplanar sequences are obtained. FINDINGS: The acromioclavicular joint is mildly degenerative. There is mild rotator cuff tendinosis. Note there is motion degradation on the examination. No measurable fluid gap or rupture of the rotator cuff. No significant subdeltoid bursal effusion. No significant glenohumeral joint effusion. No evidence of labral tear or para labral cyst. The biceps tendon appears intact. No bone destruction or acute fracture. No acute soft tissue abnormality. IMPRESSION: 1. Moderate motion degradation. 2. No definite rotator cuff tear or internal derangement. Electronically signed by: Ramesh Benson MD (08/23/2018 3:12 PM) [id number]
== END | disposition home or self-care (01) ==
LOC: MRI 08:23
PROVIDERS: ATTEND Orthopaedic Surgery Sports Medicine
DX: M75.91 Shoulder lesion, unspecified, right shoulder (principal); G89.29 Other chronic pain
CPT/HCPCS: 73221

== ENCOUNTER → 2019-01-05 | Outpatient (CLI) | payer MEDICAID ==
[2018-10-08 11:00] VITALS: BP 134/76
[~2019-01-05] MED LIST changes: +IOHEXOL 180 MG/ML 10 ML VIAL. ONE; +MORP-16 PO; -MORP30TA3 PO; +methylPREDNISolone ACETATE 40 MG/ML VIAL. ONE; +methylPREDNISolone ACETATE 80 MG/ML VIAL. ONE
--- NOTE | 2019-01-05 13:59 | PAIN ---
DATE OF SERVICE: 01/05/2019 INITIAL CONSULTATION FOR PAIN CLINIC CHIEF COMPLAINT: Neck and right upper extremity pain. HISTORY OF PRESENT ILLNESS: This is a 73-year-old male who does not speak Japanese, but his daughter and son-in-law are present with him speaking Laotian with him quite fluently and served as a translators and interpreters. The patient reports through them that he has had pain in the base of neck and shoulders for many years, at least 5+ did have surgery with multilevel posterior fusion approximately [address] Hernandez at [facility]. No improvement in the pain by the report. The patient reports pain awakens him at least twice every night, does not affect his bowel or bladder control, but does affect his ability to walk secondary to the pain getting up out of the chair, is very difficult. The patient increase in pain all the time, it is a tingling pain, it is radiating in the right upper extremity, constant, sharp, stabbing, throbbing and shooting in the right hand, especially the thumb, but all the fingers as well. The patient rates his disability rating from 0-10, 10 being the worst, is a 10 in all categories. He has tried physical therapy in the past, but nothing recently, had epidural injections prior to surgery, which were not helpful and trigger point injections as well that were not helpful. He is taking MS Contin as well as Percocet, both of which do decrease the pain, but only by about 20-30% and had those recently as today, this morning. The patient did have MRI scan of cervical spine showing advanced degenerative disk disease C6-C7, advanced narrowing at C4-C5 intervertebral disk space likely partial interbody fusion, spinal stenosis, 6 mm at C3-C4 with contact of the cord greater than left lateral recess and has slightly lesser degree of spinal stenosis at C4-C5, posterior osteophytes also mild spinal stenosis, C6-C7. Multilevel neural foraminal compromise due to facet and uncovertebral degenerative change including more significant narrowing at C3-C4, C6-C7, left C4-C5 and on the right at C5-C6. PAST MEDICAL HISTORY: Significant for hypertension, arthritis, gout, blindness, diet-controlled diabetes. PREVIOUS SURGERY: Include amputation of the left upper extremity, ORIF of bilateral lower extremities, laparoscopic cholecystectomy in 2017, bilateral cataract extractions and cervical laminectomy in May 2018. CURRENT MEDICATIONS: Include Percocet, MS Contin, simvastatin, Norvasc, and allopurinol. ALLERGIES: THE PATIENT IS ALLERGIC TO OXYCODONE, but can tolerate Percocet. FAMILY HISTORY: Significant for hypertension. SOCIAL HISTORY: The patient does not drink alcohol, does not smoke, does not use any illegal, illicit or recreational drugs or other substances. He is and lives with his son locally in [place], [place]. REVIEW OF SYSTEMS: The patient's review of systems is positive for those items mentioned in history of present illness. All systems reviewed and otherwise negative. It is complete, full and well documented on the patient's chart. PHYSICAL EXAMINATION: VITAL SIGNS: The patient's blood pressure is 120/80, pulse 84, respirations 16, temperature 98.1 degrees Fahrenheit, height is 62 inches, weighs 123 pounds. GENERAL: He is awake, alert, oriented, appropriate, very pleasant demeanor. Again, the patient's daughter and son present acting as interpreters and translators. HEENT: Shows normocephalic, atraumatic. Extraocular movements are disconjugate. Oral cavity: Mucous membranes moist and pink. Dentition is intact. NECK: Shows anterior throat supple without palpable lymphadenopathy noted. The patient is significantly larger well-healed surgical scar on the posterior aspect of the cervical spine with some increased tenderness in the paraspinous musculature throughout the upper, middle and lower distribution of paraspinous muscles of the cervical distribution is true into the trapezius musculature superiorly bilaterally as well with some asymmetry greater on the right than the left throughout. CHEST: Shows normal on inspection. Breath sounds are clear bilaterally. HEART: Shows S1, S2 clear. No murmurs auscultated. ABDOMEN: Obese, soft, nontender, nondistended. BACK: Shows spine grossly in the midline. Again cervical lordotic curvature flattened, thoracic kyphosis is normal as his lumbar lordotic curvature. EXTREMITIES: The patient's upper extremities show amputation on the left upper extremity. Right upper extremity shows deep tendon reflexes at 2+ in the biceps and triceps tendons. Motor exam is approximately 4 on a scale of 5 with manager of investigations strength, bicep and tricep flexion, but intact and strong. Peripheral pulses are 2+ radial distribution. No peripheral edema is noted. Shoulder shrug is strong and intact without loss of strength on resistance as is abduction of the shoulder on the right without loss of strength on resistance, both with deltoid flexion and with abduction and adduction. Peripheral pulses 2+ radial distribution on the right arm as well. Right upper extremity shows no bruises, rashes or discoloration, no allodynia, hyperesthesia of the upper extremity. IMPRESSION: 1. This is a 73-year-old male with long history of pain in the neck, right upper extremity, status post multilevel posterior surgical fusion in 2018 without improvement. 2. Hypertension. 3. Arthritis. 4. Diet-controlled diabetes. 5. Previous left arm amputation. PLAN: Options were discussed with the patient and the patient's daughter and son-in-law including conservative medical management, physical therapies, interventional techniques and would like to pursue interventional techniques. We discussed a cervical epidural steroid injection using description as well as anatomical models to describe the procedure. Risks were then discussed including, but not limited to bleeding, infection, possibility of epidural hematoma, subsequent neurological compromise, dural puncture, headaches, spinal cord and/or nerve damage, side effects of steroid medication and poor results regarding pain control. The patient understands and wished to proceed. The patient will return to clinic in approximately 2 weeks for followup. He was counseled on return appointment, activity level and side effects to be aware of. DIAGNOSES: Cervical radiculopathy with cervical degenerative disk disease and cervical spinal stenosis and post-cervical laminectomy syndrome. PROCEDURE: Cervical epidural steroid injection, translaminar approach C6-C7 level using C-arm fluoroscopic guidance under sterile prep and drape using local anesthetic. MEDICATION INJECTED: The patient received a total of 120 mg Depo-Medrol plus 5 mL of preservative-free normal saline and 2 mL of contrast. CONDITION AT DISCHARGE: Stable. The patient tolerated procedure well, had no complications. STELLA BENAVIDES MD DR: AIDEE/michel JOB#: [id number] / [id number] EKATERINA Stevenson MD
== END ==
LOC: PNCL 08:09
PROVIDERS: ATTEND Anesthesiology
DX: M50.123 Cervical disc disorder at C6-C7 level with radiculopathy (principal); I10 Essential (primary) hypertension; M10.9 Gout, unspecified; Z87.39 Personal history of other diseases of the musculoskeletal system and connective tissue; Z90.49 Acquired absence of other specified parts of digestive tract; Z98.42 Cataract extraction status, left eye; Z98.41 Cataract extraction status, right eye; Z98.890 Other specified postprocedural states; Z88.5 Allergy status to narcotic agent; Z96.1 Presence of intraocular lens
CPT/HCPCS: 62321; J1030; J1040; Q9965

== ENCOUNTER 2019-01-17 10:30 | Inpatient (IN) | payer MEDICAID ==
[~2019-01-17] VITALS: Ht 152.4 cm; Wt 55.9 kg
[~2019-01-17 10:30] MED LIST changes: -IOHEXOL 180 MG/ML 10 ML VIAL. ONE; +SIMV10TA15 PO; -SIMV10TA3 PO; -methylPREDNISolone ACETATE 40 MG/ML VIAL. ONE; -methylPREDNISolone ACETATE 80 MG/ML VIAL. ONE
--- NOTE | 2019-01-17 12:07 | PHYS DOC ---
Past Medical History Past Medical History: Anxiety, GERD, Hypertension, Other Additional Past Medical Histor: DDD, GOUT, BLIND, CHITIMACHA Past Surgical History: Other Additional Past Surgical Histo: L. ARM AMPUTATION, NECK,R LEG ORIF Alcohol Use: None Drug Use: None Adult General Chief Complaint Chief Complaint: ABDOMINAL PAIN HPI HPI Patient is a 74 y/o male, who presents to the emergency department for evaluation. According to the patient's son, the patient has been having some difficult time using the restroom, both the urinary, as well as defecating, over the past few days, having to strain hard and a lot to have bowel movements and urinate. He also complains of some generalized abdominal pain. Has not had any vomiting, denies any chest pain or shortness of breath. He does not ambulate much, secondary to gout, but is able to be helped to the bathroom by his , who lives with him. The patient is blind, and hard of hearing, but denies any other complaints at this time. The patient does not speak Tajik, and history was obtained with the patient's son serving as rack room worker, the son speaks Tajik fluently. There are no known alleviating or exacerbating factors to his symptoms otherwise. Review of Systems Review of Systems Constitutional: Denies fever or chills [] Eyes: Denies change in visual acuity, redness, or eye pain [] HENT: Denies nasal congestion or sore throat [] Respiratory: Denies cough or shortness of breath [] Cardiovascular: The patient denies any shortness of breath, chest pain, palpitations, or orthopnea[] GI: Denies emesis, bloody stools, reports constipation and abdominal pain.[] : Denies dysuria or hematuria reports difficulty urinating. [] Musculoskeletal: Denies back pain or joint pain [] Integument: Denies rash or skin lesions [] Neurologic: Denies headache, focal weakness or sensory changes [] Endocrine: Denies polyuria or polydipsia [] All other systems were reviewed and found to be within normal limits, except as documented in this note. Current Medications Current Medications Current Medications Medications (Trade) Dose Ordered Sig/Noelle Start Time Stop Time Status Last Admin Dose Admin Ciprofloxacin/ Dextrose 200 ml @ 200 mls/hr 1X ONCE 01/17/19 15:00 01/17/19 15:59 Info (CONTRAST GIVEN -- Rx MONITORING) 1 each PRN DAILY PRN 01/17/19 13:30 01/19/19 13:29 Iohexol (Omnipaque 300 Mg/ml) 60 ml 1X ONCE 01/17/19 13:30 01/17/19 13:31 DC 01/17/19 13:31 60 ML Metronidazole 100 ml @ 100 mls/hr 1X ONCE 01/17/19 15:00 01/17/19 15:59 Sodium Chloride 1,000 ml @ 100 mls/hr Q10H 01/17/19 12:30 01/17/19 22:29 01/17/19 12:37 100 MLS/HR Allergies Allergies Allergies Coded Allergies Type Severity Reaction Last Updated Verified hydrocodone Allergy Intermediate Rash 01/06/17 Yes Physical Exam Physical Exam PHYSICAL EXAM: CONSTITUTIONAL: Well developed, well nourished HEAD: normocephalic, atraumatic EENT: There are postsurgical changes to the eyes bilaterally, with no reaction consistent with the patient's history of blindness., EOMI. Conjunctivae normal color, sclerae non-icteric; moist mucous membranes. NECK: Supple, non-tender; no meningismus. LUNGS: Lungs CTA, breathing even and unlabored. Normal air movement. HEART: Regular rate and rhythm, no murmur CHEST: No deformity; non-tender ABDOMEN: The abdomen is soft, there is tenderness to palpation in the mid lower abdomen, where there is firmness and tenderness to palpation, possibly consistent with a distended bladder, the remainder the abdomen is relatively soft and non-tender, no masses or bruits. Bowel sounds are present. EXTREM: Normal ROM; no deformity, no calf tenderness. Normal pulses palpable in all extremities. There is trace bilateral nonpitting pedal edema. there has been an amputation of the left arm at the shoulder. SKIN: No rash; no diaphoresis NEURO: Alert; normal speech and cognition; CN's grossly intact; strength grossly intact without focal deficit. BACK: No CVA TTP. Current Patient Data Vital Signs Vital Signs Date Time Temp Pulse Resp B/P (MAP) Pulse Ox O2 Delivery O2 Flow Rate FiO2 01/17/19 12:59 92 17 159/91 (113) 95 Room Air 01/17/19 11:26 98.7 98.7 Lab Values Laboratory Tests Test 01/17/19 12:28 01/17/19 13:25 White Blood Count 19.9 x10^3/uL (4.0-11.0) H Red Blood Count 4.32 x10^6/uL (4.30-5.70) Hemoglobin 12.7 g/dL (13.0-17.5) L Hematocrit 38.8 % (39.0-53.0) L Mean Corpuscular Volume 90 fL (79-100) Mean Corpuscular Hemoglobin 30 pg (25-35) Mean Corpuscular Hemoglobin Concent 33 g/dL (31-37) Red Cell Distribution Width 16.5 % (11.5-14.5) H Platelet Count 320 x10^3/uL (140-400) Neutrophils (%) (Auto) 89 % (31-73) H Lymphocytes (%) (Auto) 6 % (24-48) L Monocytes (%) (Auto) 5 % (0-9) Eosinophils (%) (Auto) 0 % (0-3) Basophils (%) (Auto) 0 % (0-3) Neutrophils # (Auto) 17.7 x10^3/uL (1.8-7.7) H Lymphocytes # (Auto) 1.1 x10^3/uL (1.0-4.8) Monocytes # (Auto) 1.0 x10^3/uL (0.0-1.1) Eosinophils # (Auto) 0.0 x10^3/uL (0.0-0.7) Basophils # (Auto) 0.0 x10^3/uL (0.0-0.2) Segmented Neutrophils % 84 % (35-66) H Band Neutrophils % 2 % (0-9) Lymphocytes % 8 % (24-48) L Monocytes % 6 % (0-10) Platelet Estimate Adequate (ADEQUATE) Sodium Level 145 mmol/L (136-145) Potassium Level 4.6 mmol/L (3.5-5.1) Chloride Level 109 mmol/L (98-107) H Carbon Dioxide Level 23 mmol/L (21-32) Anion Gap 13 (6-14) Blood Urea Nitrogen 28 mg/dL (8-26) H Creatinine 1.5 mg/dL (0.7-1.3) H Estimated GFR (Cockcroft-Gault) 45.5 BUN/Creatinine Ratio 19 (6-20) Glucose Level 119 mg/dL (70-99) H Lactic Acid Level 1.7 mmol/L (0.4-2.0) Calcium Level 9.5 mg/dL (8.5-10.1) Total Bilirubin 0.4 mg/dL (0.2-1.0) Aspartate Amino Transferase (AST) 45 U/L (15-37) H Alanine Aminotransferase (ALT) 61 U/L (16-63) Alkaline Phosphatase 66 U/L (46-116) Troponin I Quantitative < 0.017 ng/mL (0.000-0.055) Total Protein 7.6 g/dL (6.4-8.2) Albumin 3.5 g/dL (3.4-5.0) Albumin/Globulin Ratio 0.9 (1.0-1.7) L Lipase 69 U/L (73-393) L Urine Color Yellow Urine Clarity Clear Urine pH 6.0 Urine Specific [place] 1.015 Urine Protein 30 mg/dL (NEG-TRACE) Urine Glucose (UA) Negative mg/dL (NEG) Urine Ketones (Stick) Negative mg/dL (NEG) Urine Blood Trace (NEG) Urine Nitrite Negative (NEG) Urine Bilirubin Negative (NEG) Urine Urobilinogen Dipstick 0.2 mg/dL (0.2 mg/dL) Urine Leukocyte Esterase Negative (NEG) Urine RBC 1-2 /HPF (0-2) Urine WBC 1-4 /HPF (0-4) Urine Squamous Epithelial Cells Occ /LPF Urine Bacteria 0 /HPF (0-FEW) Urine Mucus Slight /LPF Laboratory Tests 01/17/19 12:28 Laboratory Tests 01/17/19 12:28 EKG EKG Normal sinus rhythm at a rate of 94 beats for minute, normal axis, normal intervals, there are no acute ischemic ST/T changes.[] Radiology/Procedures Radiology/Procedures PROCEDURE: CT ABD PELV W/ IV CONTRST ONLY Examination: CT of the abdomen pelvis with IV contrast HISTORY: History of abdominal pain COMPARISON: 02/07/2017 TECHNIQUE: Axial CT images of the abdomen pelvis were performed with IV contrast. Coronal and sagittal reformats are performed. Exposure: One or more of the following individualized dose reduction techniques were utilized for this examination: 1. Automated exposure control 2. Adjustment of the mA and/or kV according to patient size 3. Use of iterative reconstruction technique FINDINGS: Mild bibasilar lung airspace opacities likely atelectasis or infiltrates. No evidence of free air identified in the abdomen. Prominent appearing intrahepatic bile ducts the common bile duct measures 1.7 cm in transverse dimension. The visualized spleen, adrenals grossly appears unremarkable. The stomach is minimally distended. Mild atrophic appearance of the pancreas. The small bowel is nondilated. Feces and gas noted in the colon. Mild thickened appearance of the wall of the sigmoid colon probably due to nondistention or colitis. Urinary bladder is mildly distended. The bilateral kidneys enhance symmetrically. Cystic structures identified in the bilateral kidneys likely cysts with the largest measuring 3 cm in the right kidney. Moderate degenerative changes lumbar spine. IMPRESSION: 1. Prominent appearing common bile duct and intrahepatic bile ducts probably post cholecystectomy changes or common bile duct obstruction is not completely excluded. Correlate with lab values. 2. Mild thickened appearance of the sigmoid colon wall with minimal surrounding fat stranding could be due to nondistention or mild colitis. 3. Bilateral renal cysts. [] Course & Med Decision Making Course & Med Decision Making Pertinent Labs and Imaging studies reviewed. (See chart for details) []2:18 PM: The patient's condition remains stable. I spoke with the hospitalist, who accepted the patient to the hospital for further evaluation and treatment. Patient did have a fairly large bowel movement. Dragon Disclaimer Dragon Disclaimer This electronic medical record was generated, in whole or in part, using a voice recognition dictation system. Departure Departure Impression: Primary Impression: Abdominal pain Additional Impressions: Leukocytosis Colitis Disposition: ADMITTED INPATIENT Admitting Physician: HIMS Condition: STABLE Referrals: EKATERINA STUBBS MD (PCP) Problem Qualifiers DAVINA LAKE MD Jan 17, 2019 12:07
[2019-01-17] MEDS ORDERED: IV NORMAL SALINE 1000ML BAG 1,000 ML IV SCH (12:30)
[2019-01-17 12:41] LABS: BASO % 0 % (0-3); EOS % 0 % (0-3); HEMATOCRIT 38.8 % (39.0-53.0); HEMOGLOBIN 12.7 g/dL (13.0-17.5); LYMPH # 1.1 x10^3/uL (1.0-4.8); LYMPH % 6 % (24-48); MEAN CORPUSCULAR HEMOGLOBIN 30 pg (25-35); MEAN CORPUSCULAR HGB CONC 33 g/dL (31-37); MEAN CORPUSCULAR VOLUME 90 fL (79-100); MONO % 5 % (0-9); NEUT # 17.7 x10^3/uL (1.8-7.7); NEUT % 89 % (31-73); PLATELET COUNT 320 x10^3/uL (140-400); RED BLOOD COUNT 4.32 x10^6/uL (4.30-5.70); RED CELL DISTRIBUTION WIDTH 16.5 % (11.5-14.5); WHITE BLOOD COUNT 19.9 x10^3/uL (4.0-11.0)
[2019-01-17 13:05] LABS: CALCIUM 9.5 mg/dL (8.5-10.1); CREATININE 1.5 mg/dL (0.7-1.3); GFR 45.5; POTASSIUM 4.6 mmol/L (3.5-5.1)
[2019-01-17 13:11] LABS: ALBUMIN 3.5 g/dL (3.4-5.0); ALBUMIN/GLOBULIN RATIO 0.9 (1.0-1.7); TOTAL BILIRUBIN 0.4 mg/dL (0.2-1.0); TOTAL PROTEIN 7.6 g/dL (6.4-8.2)
--- NOTE | 2019-01-17 13:15 | EKG ---
[facility] [address] [place] [address] Test Date: 2019-01-17 Test Time: 11:55:43 Pat Name: TRACEY PLATT Department: Room: Gender: M Sack Filler: : 1945 Requested By: DAVINA LAKE Order Number: [id number] Reading MD: Measurements Intervals [place] Rate: 94 P: -84 DE: 160 QRS: 148 QRSD: 84 T: 119 QT: 354 QTc: 448 Interpretive Statements SINUS RHYTHM ABNORMAL RIGHT AXIS DEVIATION QRS(T) CONTOUR ABNORMALITY CONSISTENT WITH HIGH LATERAL INFARCT AGE UNDETERMINED ABNORMAL ECG No previous ECG available for comparison
[2019-01-17 13:28] LABS: % BANDS 2 % (0-9); % LYMPHS 8 % (24-48); % MONOS 6 % (0-10); % SEGS 84 % (35-66); PLT ESTIMATE ADEQUATE (ADEQUATE)
[2019-01-17] MEDS ORDERED: CONTRAST GIVEN. MC PRN (13:30)
[2019-01-17] MEDS ORDERED: IOHEXOL 300 MG/ML 100ML VIAL. IV ONE (13:30)
[2019-01-17 13:48] LABS: BILIRUBIN,URINE NEGATIVE (NEG); CLARITY,URINE CLEAR; COLOR,URINE YELLOW; NITRITE,URINE NEGATIVE (NEG); PROTEIN,URINE 30 mg/dL (NEG-TRACE); UROBILINOGEN,URINE 0.2 mg/dL (0.2 mg/dL)
--- NOTE | 2019-01-17 14:12 | RAD ---
Examination: CT of the abdomen pelvis with IV contrast HISTORY: History of abdominal pain COMPARISON: 02/07/2017 TECHNIQUE: Axial CT images of the abdomen pelvis were performed with IV contrast. Coronal and sagittal reformats are performed. Exposure: One or more of the following individualized dose reduction techniques were utilized for this examination: 1. Automated exposure control 2. Adjustment of the mA and/or kV according to patient size 3. Use of iterative reconstruction technique FINDINGS: Mild bibasilar lung airspace opacities likely atelectasis or infiltrates. No evidence of free air identified in the abdomen. Prominent appearing intrahepatic bile ducts the common bile duct measures 1.7 cm in transverse dimension. The visualized spleen, adrenals grossly appears unremarkable. The stomach is minimally distended. Mild atrophic appearance of the pancreas. The small bowel is nondilated. Feces and gas noted in the colon. Mild thickened appearance of the wall of the sigmoid colon probably due to nondistention or colitis. Urinary bladder is mildly distended. The bilateral kidneys enhance symmetrically. Cystic structures identified in the bilateral kidneys likely cysts with the largest measuring 3 cm in the right kidney. Moderate degenerative changes lumbar spine. IMPRESSION: 1. Prominent appearing common bile duct and intrahepatic bile ducts probably post cholecystectomy changes or common bile duct obstruction is not completely excluded. Correlate with lab values. 2. Mild thickened appearance of the sigmoid colon wall with minimal surrounding fat stranding could be due to nondistention or mild colitis. 3. Bilateral renal cysts. Electronically signed by: Francois Griffin MD (01/17/2019 2:09 PM) [id number]
[2019-01-17 14:16] LABS: BACTERIA,URINE 0 /HPF (0-FEW); SQUAMOUS EPITHELIAL CELL,UR OCC /LPF
[2019-01-17] MEDS ORDERED: CIPROFLOXACIN 400MG PREMIX 200 ML IV ONE (15:00)
--- NOTE | 2019-01-17 16:11 | PDOC1 ---
History and Physical Date of Admission Date of Admission DATE: 01/17/19 TIME: 16:09 Source Source: Caregiver, Chart review, Patient History of Present Illness History of Present Illness MR. Ling, is a 74 y/o male, admit with acute abd pain, lethargy and has been constipated and having worse pain. reports is of having to strain hard and a lot to have bowel movements and urinate. He also complains of some generalized abdominal pain. . He does not ambulate much, secondary to gout, but is able to be helped to the bathroom by his , who lives with him. The patient is blind, and hard of hearing. translation is done by his son, his and other family member present for eval. Mr. Ling is H[place], has lived here 30 years and does not speak Nepali, Past Medical History Cardiovascular: HTN Pulmonary: Other GI: Constipation, GERD, Other Heme/Onc: No pertinent hx Hepatobiliary: Cholelithiasis Psych: Depression Rheumatologic: Other Infectious disease: No pertinent hx Renal/: Chronic renal insuff Endocrine: Diabetes Past Surgical History Past Surgical History: Other (lost his left arm in the [place] conflict, about 1969) Social History Smoke: No ALCOHOL: occassional Drugs: None Current Problem List Problem List Problems Medical Problems: (1) Abdominal pain Status: Acute (2) Colitis Status: Acute (3) Leukocytosis Status: Acute Current Medications Current Medications Current Medications Sodium Chloride 1,000 ml @ 100 mls/hr Q10H IV Last administered on 01/17/19at 12:37; Start 01/17/19 at 12:30; Stop 01/17/19 at 22:29 Iohexol (Omnipaque 300 Mg/ml) 60 ml 1X ONCE IV Last administered on 01/17/19at 13:31; Start 01/17/19 at 13:30; Stop 01/17/19 at 13:31; Status DC Info (CONTRAST GIVEN -- Rx MONITORING) 1 each PRN DAILY PRN MC SEE COMMENTS; Start 01/17/19 at 13:30; Stop 01/19/19 at 13:29 Ciprofloxacin/ Dextrose 200 ml @ 200 mls/hr 1X ONCE IV Last administered on 01/17/19at 14:01; Start 01/17/19 at 15:00; Stop 01/17/19 at 15:59; Status DC Metronidazole 100 ml @ 100 mls/hr 1X ONCE IV Last administered on 01/17/19at 15:57; Start 01/17/19 at 15:00; Stop 01/17/19 at 15:59; Status DC Active Scripts Active Flagyl (Metronidazole) 500 Mg Tablet 500 Mg PO Q8HRS 10 Days Alprazolam 0.25 Mg Tablet 1 Tab PO TID PRN Escitalopram Oxalate 20 Mg Tablet 1 Tab PO DAILY 30 Days Reported Morphine Sulfate Er (Morphine Sulfate) 30 Mg Tablet.er 1 Tab PO BID Percocet 5-325 Mg Tablet (Oxycodone/Acetaminophen) 1 Each Tablet 1 Tab PO PRN Q6HRS PRN Famotidine 40 Mg Tablet 40 Mg PO DAILY Simvastatin 10 Mg Tablet 20 Mg PO HS Amlodipine Besylate 5 Mg Tablet 5 Mg PO DAILY Allopurinol 100 Mg Tablet 200 Mg PO DAILY Pepcid (Famotidine) 40 Mg Tablet 40 Mg PO HS Aspir 81 (Aspirin) 81 Mg Tablet.dr 1 Tab PO DAILY Gabapentin (Gabapentin) 100 Mg Capsule 100 Mg PO PRN Q8HRS PRN Coreg (Carvedilol) 6.25 Mg Tablet 1 Tab PO BID Triamcinolone Acetonide 0.1% Oint (Triamcinolone Acetonide) 15 Gm Oint...g. 1 Dawit TP TID PRN MIX WITH EUCERIN DIRECTED BY PHYSICIAN Allergies Allergies: Coded Allergies: hydrocodone (Verified Allergy, Intermediate, Rash, 01/06/17) ROS General: YES: Fatigue, Malaise; No: Chills, Night Sweats, Appetite, Other PSYCHOLOGICAL ROS: No: Anxiety, Behavioral Disorder, Concentration difficultie, Decreased libido, Depression, Disorientation, Hallucinations, Hostility, Ir ritablity, Memory difficulties, Mood Swings, Obsessive thoughts, Physical abuse, Sexual abuse, Sleep disturbances, Suicidal ideation, Other Eyes: No Blurry vision, No Decreased vision, No Double vision, No Dry eyes, No Excessive tearing, No Eye Pain, No Itchy Eyes, No Loss of vision, No Photophobia, No Scotomata, No Uses contacts, No Uses glasses, No Other HEENT: No: Heacaches, Visual Changes, Hearing change, Nasal congestion, Nasal discharge, Oral lesions, Sinus pain, Sore Throat, Epistaxis, Sneezing, Snoring, Tinnitus, Vertigo, Vocal changes, Other ENDOCRINE: No: Breast Changes, Galactorrhea, Hair Pattern Changes, Hot Flashes, Malaise/lethargy, Mood Swings, Palpitations, Polydipsia/polyuria, Skin Changes, Temperature Intolerance, Unexpected Weight Changes, Other Respiratory: No: Cough, Hemoptysis, Orthopnea, Pleuritic Pain, Shortness of breath, SOB with excertion, Sputum Changes, Stridor, Tachypnea, Wheezing, Other Cardiovascular: No Chest Pain, No Palpitations, No Orthopnea, No Paroxysmal Noc. Dyspnea, No Edema, No Lt Headedness, No Other Gastrointestinal: No Nausea, No Vomiting, No Abdominal Pain, No Diarrhea, No Constipation, No Melena, No Hematochezia, No Other Genitourinary: No Dysuria, No Frequency, No Incontinence, No Hematuria, No Retention, No Discharge, No Urgency, No Pain, No Flank Pain, No Other, No , No , No , No , No , No , No Musculoskeletal: Yes Joint Pain, Yes Joint Stiffness, Yes Pain In: (right hand, hx gout) Neurological: No Behavorial Changes, No Bowel/Bladder ControlChng, No Conf usion, No Dizziness, No Gait Disturbance, No Headaches, No Impaired Coord/balance, No Memory Loss, No Numbness/Tingling, No Seizures, No Speech Problems, No Tremors, No Visual Changes, No Weakness, No Other Skin: No Dry Skin, No Eczema, No Hair Changes, No Lumps, No Mole Changes, No Mottling, No Nail Changes, No Pruritus, No Rash, No Skin Lesion Changes, No Ot her, No Acne Physical Exam General: Alert, Oriented X3, Cooperative, mild distress HEENT: EOMI, Mucous membr. moist/pink Lungs: Clear to auscultation, Normal air movement Abdomen: Normal bowel sounds, Soft Extremities: No clubbing, No edema Skin: No rashes, No breakdown, No significant lesion Neuro: Normal speech, Normal tone, Sensation intact, Cranial nerves 3-12 NL, Other Psych/Mental Status: Mood NL Vitals Vitals Vital Signs Date Time Temp Pulse Resp B/P (MAP) Pulse Ox O2 Delivery O2 Flow Rate FiO2 01/17/19 12:59 92 17 159/91 (113) 95 Room Air 01/17/19 11:26 98.7 98.7 Labs Labs Laboratory Tests Test 01/17/19 12:28 01/17/19 13:25 White Blood Count 19.9 x10^3/uL (4.0-11.0) Red Blood Count 4.32 x10^6/uL (4.30-5.70) Hemoglobin 12.7 g/dL (13.0-17.5) Hematocrit 38.8 % (39.0-53.0) Mean Corpuscular Volume 90 fL (79-100) Mean Corpuscular Hemoglobin 30 pg (25-35) Mean Corpuscular Hemoglobin Concent 33 g/dL (31-37) Red Cell Distribution Width 16.5 % (11.5-14.5) Platelet Count 320 x10^3/uL (140-400) Neutrophils (%) (Auto) 89 % (31-73) Lymphocytes (%) (Auto) 6 % (24-48) Monocytes (%) (Auto) 5 % (0-9) Eosinophils (%) (Auto) 0 % (0-3) Basophils (%) (Auto) 0 % (0-3) Neutrophils # (Auto) 17.7 x10^3/uL (1.8-7.7) Lymphocytes # (Auto) 1.1 x10^3/uL (1.0-4.8) Monocytes # (Auto) 1.0 x10^3/uL (0.0-1.1) Eosinophils # (Auto) 0.0 x10^3/uL (0.0-0.7) Basophils # (Auto) 0.0 x10^3/uL (0.0-0.2) Segmented Neutrophils % 84 % (35-66) Band Neutrophils % 2 % (0-9) Lymphocytes % 8 % (24-48) Monocytes % 6 % (0-10) Platelet Estimate Adequate (ADEQUATE) Sodium Level 145 mmol/L (136-145) Potassium Level 4.6 mmol/L (3.5-5.1) Chloride Level 109 mmol/L (98-107) Carbon Dioxide Level 23 mmol/L (21-32) Anion Gap 13 (6-14) Blood Urea Nitrogen 28 mg/dL (8-26) Creatinine 1.5 mg/dL (0.7-1.3) Estimated GFR (Cockcroft-Gault) 45.5 BUN/Creatinine Ratio 19 (6-20) Glucose Level 119 mg/dL (70-99) Lactic Acid Level 1.7 mmol/L (0.4-2.0) Calcium Level 9.5 mg/dL (8.5-10.1) Total Bilirubin 0.4 mg/dL (0.2-1.0) Aspartate Amino Transf (AST/SGOT) 45 U/L (15-37) Alanine Aminotransferase (ALT/SGPT) 61 U/L (16-63) Alkaline Phosphatase 66 U/L (46-116) Troponin I Quantitative < 0.017 ng/mL (0.000-0.055) Total Protein 7.6 g/dL (6.4-8.2) Albumin 3.5 g/dL (3.4-5.0) Albumin/Globulin Ratio 0.9 (1.0-1.7) Lipase 69 U/L (73-393) Urine Color Yellow Urine Clarity Clear Urine pH 6.0 Urine Specific [place] 1.015 Urine Protein 30 mg/dL (NEG-TRACE) Urine Glucose (UA) Negative mg/dL (NEG) Urine Ketones (Stick) Negative mg/dL (NEG) Urine Blood Trace (NEG) Urine Nitrite Negative (NEG) Urine Bilirubin Negative (NEG) Urine Urobilinogen Dipstick 0.2 mg/dL (0.2 mg/dL) Urine Leukocyte Esterase Negative (NEG) Urine RBC 1-2 /HPF (0-2) Urine WBC 1-4 /HPF (0-4) Urine Squamous Epithelial Cells Occ /LPF Urine Bacteria 0 /HPF (0-FEW) Urine Mucus Slight /LPF Laboratory Tests Test 01/17/19 12:28 01/17/19 13:25 White Blood Count 19.9 x10^3/uL (4.0-11.0) Red Blood Count 4.32 x10^6/uL (4.30-5.70) Hemoglobin 12.7 g/dL (13.0-17.5) Hematocrit 38.8 % (39.0-53.0) Mean Corpuscular Volume 90 fL (79-100) Mean Corpuscular Hemoglobin 30 pg (25-35) Mean Corpuscular Hemoglobin Concent 33 g/dL (31-37) Red Cell Distribution Width 16.5 % (11.5-14.5) Platelet Count 320 x10^3/uL (140-400) Neutrophils (%) (Auto) 89 % (31-73) Lymphocytes (%) (Auto) 6 % (24-48) Monocytes (%) (Auto) 5 % (0-9) Eosinophils (%) (Auto) 0 % (0-3) Basophils (%) (Auto) 0 % (0-3) Neutrophils # (Auto) 17.7 x10^3/uL (1.8-7.7) Lymphocytes # (Auto) 1.1 x10^3/uL (1.0-4.8) Monocytes # (Auto) 1.0 x10^3/uL (0.0-1.1) Eosinophils # (Auto) 0.0 x10^3/uL (0.0-0.7) Basophils # (Auto) 0.0 x10^3/uL (0.0-0.2) Segmented Neutrophils % 84 % (35-66) Band Neutrophils % 2 % (0-9) Lymphocytes % 8 % (24-48) Monocytes % 6 % (0-10) Platelet Estimate Adequate (ADEQUATE) Sodium Level 145 mmol/L (136-145) Potassium Level 4.6 mmol/L (3.5-5.1) Chloride Level 109 mmol/L (98-107) Carbon Dioxide Level 23 mmol/L (21-32) Anion Gap 13 (6-14) Blood Urea Nitrogen 28 mg/dL (8-26) Creatinine 1.5 mg/dL (0.7-1.3) Estimated GFR (Cockcroft-Gault) 45.5 BUN/Creatinine Ratio 19 (6-20) Glucose Level 119 mg/dL (70-99) Lactic Acid Level 1.7 mmol/L (0.4-2.0) Calcium Level 9.5 mg/dL (8.5-10.1) Total Bilirubin 0.4 mg/dL (0.2-1.0) Aspartate Amino Transf (AST/SGOT) 45 U/L (15-37) Alanine Aminotransferase (ALT/SGPT) 61 U/L (16-63) Alkaline Phosphatase 66 U/L (46-116) Troponin I Quantitative < 0.017 ng/mL (0.000-0.055) Total Protein 7.6 g/dL (6.4-8.2) Albumin 3.5 g/dL (3.4-5.0) Albumin/Globulin Ratio 0.9 (1.0-1.7) Lipase 69 U/L (73-393) Urine Color Yellow Urine Clarity Clear Urine pH 6.0 Urine Specific [place] 1.015 Urine Protein 30 mg/dL (NEG-TRACE) Urine Glucose (UA) Negative mg/dL (NEG) Urine Ketones (Stick) Negative mg/dL (NEG) Urine Blood Trace (NEG) Urine Nitrite Negative (NEG) Urine Bilirubin Negative (NEG) Urine Urobilinogen Dipstick 0.2 mg/dL (0.2 mg/dL) Urine Leukocyte Esterase Negative (NEG) Urine RBC 1-2 /HPF (0-2) Urine WBC 1-4 /HPF (0-4) Urine Squamous Epithelial Cells Occ /LPF Urine Bacteria 0 /HPF (0-FEW) Urine Mucus Slight /LPF VTE Prophylaxis Ordered VTE Prophylaxis Devices: No VTE Pharmacological Prophylaxi: Yes Assessment/Plan Assessment/Plan sepsis colitis acute abd pain vasomotor nephropathy Dm2, w. blindness urinary retention, start flomax, check bladder scan, PSA in am IV abx, change to PO when able IV fluid, supportive care pt seen in ER, his son translated KASIA ANDRADE MD Jan 17, 2019 16:11
[2019-01-17] MEDS ORDERED: DEXTROSE 50% 25 GM / 50ML DISP.SYRIN. IV PRN (16:15)
[2019-01-17] MEDS ORDERED: GABAPENTIN 100 MG CAPSULE. PO PRN (16:30)
[2019-01-17] MEDS ORDERED: TRIAMCINOLONE ACETONIDE 0.1% TOPICAL OINTMENT 15GM TUBE. TP PRN (16:30)
[2019-01-17] MEDS: INSULIN LISPRO 300 UNITS/3 ML VIAL. SQ SCH (17:00)
[2019-01-17] MEDS ORDERED: DOCUSATE SODIUM 100 MG CAPSULE. PO SCH (17:00)
[2019-01-17] MEDS: POLYETHYLENE GLYCOL 3350 17 GM PACKET. PO SCH (17:58)
[2019-01-17] MEDS: CARVEDILOL 6.25 MG TABLET. PO SCH (17:58)
[2019-01-17 19:00] VITALS: BP 131/78
[2019-01-17] MEDS: ALPRAZolam 0.25 MG TABLET PO PRN (21:30)
[2019-01-17] MEDS: oxyCODONE/APAP 5/325 1 TAB TABLET PO PRN (21:30)
[2019-01-17] MEDS: metroNIDAZOLE 500 MG TABLET PO SCH (21:30)
[2019-01-17] MEDS: SIMVASTATIN 20 MG TABLET PO SCH (21:31)
[2019-01-17] MEDS: TAMSULOSIN 0.4 MG CAP.ER.24H. PO SCH (21:31)
[2019-01-17] MEDS ORDERED: metroNIDAZOLE 500 MG TABLET PO SCH (22:00)
[2019-01-17 23:00] VITALS: BP 140/80
[2019-01-18 03:00] VITALS: BP 136/76
[2019-01-18] MEDS: metroNIDAZOLE 500 MG TABLET PO SCH (05:19)
[2019-01-18] MEDS: POLYETHYLENE GLYCOL 3350 17 GM PACKET. PO SCH (06:22)
[2019-01-18 06:44] LABS: BASO % 0 % (0-3); EOS % 0 % (0-3); HEMATOCRIT 35.2 % (39.0-53.0); HEMOGLOBIN 11.7 g/dL (13.0-17.5); LYMPH # 1.4 x10^3/uL (1.0-4.8); LYMPH % 13 % (24-48); MEAN CORPUSCULAR HEMOGLOBIN 30 pg (25-35); MEAN CORPUSCULAR HGB CONC 33 g/dL (31-37); MEAN CORPUSCULAR VOLUME 90 fL (79-100); MONO # 0.6 x10^3/uL (0.0-1.1); MONO % 5 % (0-9); NEUT % 82 % (31-73); PLATELET COUNT 264 x10^3/uL (140-400); RED BLOOD COUNT 3.93 x10^6/uL (4.30-5.70); RED CELL DISTRIBUTION WIDTH 16.8 % (11.5-14.5)
[2019-01-18 07:00] VITALS: BP 140/83
[2019-01-18 07:07] LABS: ALBUMIN/GLOBULIN RATIO 0.8 (1.0-1.7); CALCIUM 8.7 mg/dL (8.5-10.1); CREATININE 1.3 mg/dL (0.7-1.3); GFR 53.7; POTASSIUM 3.9 mmol/L (3.5-5.1); TOTAL BILIRUBIN 0.7 mg/dL (0.2-1.0); TOTAL PROTEIN 6.9 g/dL (6.4-8.2)
[2019-01-18] MEDS: INSULIN LISPRO 300 UNITS/3 ML VIAL. SQ SCH ×3 (08:00→17:00)
[2019-01-18] MEDS ORDERED: DOCUSATE SODIUM 100 MG CAPSULE. PO SCH (09:00)
[2019-01-18] MEDS ORDERED: CIPROFLOXACIN 400MG PREMIX 200 ML IV SCH (09:30)
[2019-01-18] MEDS: ALPRAZolam 0.25 MG TABLET PO PRN ×2 (10:18→21:01)
[2019-01-18] MEDS: amLODIPine BESYLATE 5 MG TABLET PO SCH (10:18)
[2019-01-18] MEDS: FAMOTIDINE 20 MG TABLET. PO SCH (10:19)
[2019-01-18] MEDS: ASPIRIN ENTERIC COATED 81 MG TABLET.DR. PO SCH (10:19)
[2019-01-18] MEDS: oxyCODONE/APAP 5/325 1 TAB TABLET PO PRN ×3 (10:19→22:24)
[2019-01-18] MEDS: CITALOPRAM 20 MG TABLET. PO SCH (10:20)
[2019-01-18] MEDS: CARVEDILOL 6.25 MG TABLET. PO SCH ×2 (10:20→16:36)
--- NOTE | 2019-01-18 11:31 | PDOC2 ---
GI CONSULT Reason For Consult: abnormal CT, abd pain, colitis, dil CBD HPI: HPI: 74 y/o male who we have seen in the past. Chart indicates abd pain w/ difficulty urinating and stooling recently. He is hearing impaired and doesn't speak [place]an. Son says his sister (pt's daughter) knows more about his health issues - currently on the second floor w/ their mother (pt's ) who is also admitted. Thinks eating okay at home. Says he denied pain last night. Doesn't know about weight loss. S/p cholecystectomy (cholelithiasis, chronic cholecystitis - also mildly eleva nicole lipase). No liver history. D/w nurse - up during the night w/ loose stools after Miralax, slept through breakfast, no stools this shift. Per past encounter - h/o GERD w/ reportedly normal EGD at , h/o constipation improved w/ docusate and Miralax. Reportedly normal colonoscopy >5 years ago. Summary list shows famotidine and ASA. PMH: PMH: HTN, HLD, CKD, OA, gout, DM, depression, cataracts LUE amputation, ORIF LE fractures, cholecystectomy FH: Family History: No pertinent hx Social History: Smoke: No ALCOHOL: occassional Drugs: None ROS: Unable to obtain. Vitals: Vitals: Vital Signs Date Time Temp Pulse Resp B/P (MAP) Pulse Ox O2 Delivery O2 Flow Rate FiO2 01/18/19 10:20 91 140/83 01/18/19 10:19 20 95 Room Air 01/18/19 07:00 98.4 98.4 Labs: Labs: Laboratory Tests Test 01/17/19 12:28 01/17/19 13:25 01/17/19 17:35 01/17/19 20:46 White Blood Count 19.9 x10^3/uL (4.0-11.0) Red Blood Count 4.32 x10^6/uL (4.30-5.70) Hemoglobin 12.7 g/dL (13.0-17.5) Hematocrit 38.8 % (39.0-53.0) Mean Corpuscular Volume 90 fL (79-100) Mean Corpuscular Hemoglobin 30 pg (25-35) Mean Corpuscular Hemoglobin Concent 33 g/dL (31-37) Red Cell Distribution Width 16.5 % (11.5-14.5) Platelet Count 320 x10^3/uL (140-400) Neutrophils (%) (Auto) 89 % (31-73) Lymphocytes (%) (Auto) 6 % (24-48) Monocytes (%) (Auto) 5 % (0-9) Eosinophils (%) (Auto) 0 % (0-3) Basophils (%) (Auto) 0 % (0-3) Neutrophils # (Auto) 17.7 x10^3/uL (1.8-7.7) Lymphocytes # (Auto) 1.1 x10^3/uL (1.0-4.8) Monocytes # (Auto) 1.0 x10^3/uL (0.0-1.1) Eosinophils # (Auto) 0.0 x10^3/uL (0.0-0.7) Basophils # (Auto) 0.0 x10^3/uL (0.0-0.2) Segmented Neutrophils % 84 % (35-66) Band Neutrophils % 2 % (0-9) Lymphocytes % 8 % (24-48) Monocytes % 6 % (0-10) Platelet Estimate Adequate (ADEQUATE) Sodium Level 145 mmol/L (136-145) Potassium Level 4.6 mmol/L (3.5-5.1) Chloride Level 109 mmol/L (98-107) Carbon Dioxide Level 23 mmol/L (21-32) Anion Gap 13 (6-14) Blood Urea Nitrogen 28 mg/dL (8-26) Creatinine 1.5 mg/dL (0.7-1.3) Estimated GFR (Cockcroft-Gault) 45.5 BUN/Creatinine Ratio 19 (6-20) Glucose Level 119 mg/dL (70-99) Lactic Acid Level 1.7 mmol/L (0.4-2.0) Calcium Level 9.5 mg/dL (8.5-10.1) Total Bilirubin 0.4 mg/dL (0.2-1.0) Aspartate Amino Transf (AST/SGOT) 45 U/L (15-37) Alanine Aminotransferase (ALT/SGPT) 61 U/L (16-63) Alkaline Phosphatase 66 U/L (46-116) Troponin I Quantitative < 0.017 ng/mL (0.000-0.055) Total Protein 7.6 g/dL (6.4-8.2) Albumin 3.5 g/dL (3.4-5.0) Albumin/Globulin Ratio 0.9 (1.0-1.7) Lipase 69 U/L (73-393) Urine Color Yellow Urine Clarity Clear Urine pH 6.0 Urine Specific [place] 1.015 Urine Protein 30 mg/dL (NEG-TRACE) Urine Glucose (UA) Negative mg/dL (NEG) Urine Ketones (Stick) Negative mg/dL (NEG) Urine Blood Trace (NEG) Urine Nitrite Negative (NEG) Urine Bilirubin Negative (NEG) Urine Urobilinogen Dipstick 0.2 mg/dL (0.2 mg/dL) Urine Leukocyte Esterase Negative (NEG) Urine RBC 1-2 /HPF (0-2) Urine WBC 1-4 /HPF (0-4) Urine Squamous Epithelial Cells Occ /LPF Urine Bacteria 0 /HPF (0-FEW) Urine Mucus Slight /LPF Glucose (Fingerstick) 111 mg/dL (70-99) 151 mg/dL (70-99) Test 01/18/19 06:10 01/18/19 07:44 White Blood Count 11.0 x10^3/uL (4.0-11.0) Red Blood Count 3.93 x10^6/uL (4.30-5.70) Hemoglobin 11.7 g/dL (13.0-17.5) Hematocrit 35.2 % (39.0-53.0) Mean Corpuscular Volume 90 fL (79-100) Mean Corpuscular Hemoglobin 30 pg (25-35) Mean Corpuscular Hemoglobin Concent 33 g/dL (31-37) Red Cell Distribution Width 16.8 % (11.5-14.5) Platelet Count 264 x10^3/uL (140-400) Neutrophils (%) (Auto) 82 % (31-73) Lymphocytes (%) (Auto) 13 % (24-48) Monocytes (%) (Auto) 5 % (0-9) Eosinophils (%) (Auto) 0 % (0-3) Basophils (%) (Auto) 0 % (0-3) Neutrophils # (Auto) 9.0 x10^3/uL (1.8-7.7) Lymphocytes # (Auto) 1.4 x10^3/uL (1.0-4.8) Monocytes # (Auto) 0.6 x10^3/uL (0.0-1.1) Eosinophils # (Auto) 0.0 x10^3/uL (0.0-0.7) Basophils # (Auto) 0.0 x10^3/uL (0.0-0.2) Sodium Level 144 mmol/L (136-145) Potassium Level 3.9 mmol/L (3.5-5.1) Chloride Level 110 mmol/L (98-107) Carbon Dioxide Level 23 mmol/L (21-32) Anion Gap 11 (6-14) Blood Urea Nitrogen 19 mg/dL (8-26) Creatinine 1.3 mg/dL (0.7-1.3) Estimated GFR (Cockcroft-Gault) 53.7 BUN/Creatinine Ratio 15 (6-20) Glucose Level 122 mg/dL (70-99) Calcium Level 8.7 mg/dL (8.5-10.1) Total Bilirubin 0.7 mg/dL (0.2-1.0) Aspartate Amino Transf (AST/SGOT) 35 U/L (15-37) Alanine Aminotransferase (ALT/SGPT) 50 U/L (16-63) Alkaline Phosphatase 55 U/L (46-116) Total Protein 6.9 g/dL (6.4-8.2) Albumin 3.0 g/dL (3.4-5.0) Albumin/Globulin Ratio 0.8 (1.0-1.7) Prostate Specific Antigen 1.08 ng/mL (0.00-4.00) Glucose (Fingerstick) 114 mg/dL (70-99) Allergies: Coded Allergies: hydrocodone (Verified Allergy, Intermediate, Rash, 01/06/17) Medications: Current Medications Medications (Trade) Dose Ordered Sig/Noelle Route PRN Reason Start Time Stop Time Status Last Admin Dose Admin Sodium Chloride 1,000 ml @ 100 mls/hr Q10H IV 01/17/19 12:30 01/17/19 22:29 DC 01/17/19 12:37 Iohexol (Omnipaque 300 Mg/ml) 60 ml 1X ONCE IV 01/17/19 13:30 01/17/19 13:31 DC 01/17/19 13:31 Ciprofloxacin/ Dextrose 200 ml @ 200 mls/hr 1X ONCE IV 01/17/19 15:00 01/17/19 15:59 DC 01/17/19 14:01 Metronidazole 100 ml @ 100 mls/hr 1X ONCE IV 01/17/19 15:00 01/17/19 15:59 DC 01/17/19 15:57 Metronidazole (Flagyl) 500 mg Q8HRS PO 01/17/19 22:00 01/18/19 05:19 Polyethylene Glycol (miraLAX PACKET) 17 gm DAILY PO 01/17/19 17:00 01/17/19 17:58 Alprazolam (Xanax) 0.25 mg PRN TID PRN PO ANXIETY / AGITATION 01/17/19 16:30 01/18/19 10:18 Amlodipine Besylate (Norvasc) 5 mg DAILY PO 01/18/19 09:00 01/18/19 10:18 Aspirin (Ecotrin) 81 mg DAILY PO 01/18/19 09:00 01/18/19 10:19 Carvedilol (Coreg) 6.25 mg BIDWMEALS PO 01/17/19 17:00 01/18/19 10:20 Gabapentin (Neurontin) 100 mg PRN Q8HRS PRN PO NEUROPATHIC PAIN 01/17/19 16:30 01/18/19 10:18 Oxycodone/ Acetaminophen (Percocet 5/325) 1 tab PRN Q6HRS PRN PO PAIN 01/17/19 16:30 01/18/19 10:19 Simvastatin (Zocor) 20 mg HS PO 01/17/19 21:00 01/17/19 21:31 Citalopram Hydrobromide (CeleXA) 20 mg DAILY PO 01/18/19 09:00 01/18/19 10:20 Famotidine (Pepcid) 20 mg DAILY PO 01/18/19 09:00 01/18/19 10:19 Tamsulosin HCl (Flomax) 0.4 mg QHS PO 01/17/19 21:00 01/17/19 21:31 Ciprofloxacin/ Dextrose 200 ml @ 200 mls/hr Q12HR IV 01/18/19 09:30 01/18/19 10:21 Imaging: Imaging: CT A/P IMPRESSION: 1. Prominent appearing common bile duct and intrahepatic bile ducts probably post cholecystectomy changes or common bile duct obstruction is not completely excluded. Correlate with lab values. 2. Mild thickened appearance of the sigmoid colon wall with minimal surrounding fat stranding could be due to nondistention or mild colitis. PE: GEN: NAD HEENT: Atraumatic, PERRL LUNGS: CTAB HEART: RRR ABD: NABS, S/ND/NT EXTREMITY: No edema SKIN: No rashes, no jaundice NEURO/PSYCH: sleeping - did not awaken during exam A/P: A/P: Abd pain, ?urinary hesitancy, constipation - resolved Leukocytosis - resolved GERD - previous EGD reportedly normal CRC screen - reportedly normal >5 years ago H/o constipation H/o C Diff S/p cholecystectomy -- Will review CT w/ Dr. Rodgers. Was constipated prior to imaging - loose stools started after treatment for constipation - monitor this w/ h/o C Diff. Re: CBD findings - unclear significant w/ normal LFTs s/p flores. Mild distended urinary bladder on CT - defer to primary. Perhaps can discuss more later w/ daughter. MARISABEL SUBRAMANIAN Jan 18, 2019 11:31
[2019-01-18 12:00] VITALS: BP 105/78
--- NOTE | 2019-01-18 12:16 | PDOC ---
PROGRESS NOTES Chief Complaint Chief Complaint sepsis with no organ dysfcn colitis acute abd pain vasomotor nephropathy, SOWMYA Dm2, w. blindness (x 2 yrs, catarcts? DM retinopathy? ) Hard of hearing urinary retention, on meds History of Present Illness History of Present Illness mAle family member who speaks tajik in room SOme diarrhea today per aide but got miralax and colace and was constipated on arrival CT shows colitis, GI consulted (has seen pt) I added IV cipro and changed flagyl PO to IV HE slept thru breakfast per aide. did not eat WBC 11 from , normal LFTs PLAn: SOme IVF IV abx for now PT OT FOllow GI recs full code Vitals Vitals Vital Signs Date Time Temp Pulse Resp B/P (MAP) Pulse Ox O2 Delivery O2 Flow Rate FiO2 01/18/19 12:00 100.1 90 16 105/78 (87) 95 Room Air 100.1 Physical Exam General: Alert, Oriented X3, Cooperative, mild distress Heart: Regular rate, Normal S1, Normal S2 Lungs: Clear Abdomen: Normal bowel sounds, Soft, No tenderness, Other (hypercative BS) Extremities: No clubbing, No edema Skin: No rashes, No breakdown, No significant lesion Labs LABS Laboratory Tests Test 01/17/19 12:28 01/17/19 13:25 01/17/19 17:35 01/17/19 20:46 White Blood Count 19.9 x10^3/uL (4.0-11.0) Red Blood Count 4.32 x10^6/uL (4.30-5.70) Hemoglobin 12.7 g/dL (13.0-17.5) Hematocrit 38.8 % (39.0-53.0) Mean Corpuscular Volume 90 fL (79-100) Mean Corpuscular Hemoglobin 30 pg (25-35) Mean Corpuscular Hemoglobin Concent 33 g/dL (31-37) Red Cell Distribution Width 16.5 % (11.5-14.5) Platelet Count 320 x10^3/uL (140-400) Neutrophils (%) (Auto) 89 % (31-73) Lymphocytes (%) (Auto) 6 % (24-48) Monocytes (%) (Auto) 5 % (0-9) Eosinophils (%) (Auto) 0 % (0-3) Basophils (%) (Auto) 0 % (0-3) Neutrophils # (Auto) 17.7 x10^3/uL (1.8-7.7) Lymphocytes # (Auto) 1.1 x10^3/uL (1.0-4.8) Monocytes # (Auto) 1.0 x10^3/uL (0.0-1.1) Eosinophils # (Auto) 0.0 x10^3/uL (0.0-0.7) Basophils # (Auto) 0.0 x10^3/uL (0.0-0.2) Segmented Neutrophils % 84 % (35-66) Band Neutrophils % 2 % (0-9) Lymphocytes % 8 % (24-48) Monocytes % 6 % (0-10) Platelet Estimate Adequate (ADEQUATE) Sodium Level 145 mmol/L (136-145) Potassium Level 4.6 mmol/L (3.5-5.1) Chloride Level 109 mmol/L (98-107) Carbon Dioxide Level 23 mmol/L (21-32) Anion Gap 13 (6-14) Blood Urea Nitrogen 28 mg/dL (8-26) Creatinine 1.5 mg/dL (0.7-1.3) Estimated GFR (Cockcroft-Gault) 45.5 BUN/Creatinine Ratio 19 (6-20) Glucose Level 119 mg/dL (70-99) Lactic Acid Level 1.7 mmol/L (0.4-2.0) Calcium Level 9.5 mg/dL (8.5-10.1) Total Bilirubin 0.4 mg/dL (0.2-1.0) Aspartate Amino Transf (AST/SGOT) 45 U/L (15-37) Alanine Aminotransferase (ALT/SGPT) 61 U/L (16-63) Alkaline Phosphatase 66 U/L (46-116) Troponin I Quantitative < 0.017 ng/mL (0.000-0.055) Total Protein 7.6 g/dL (6.4-8.2) Albumin 3.5 g/dL (3.4-5.0) Albumin/Globulin Ratio 0.9 (1.0-1.7) Lipase 69 U/L (73-393) Urine Color Yellow Urine Clarity Clear Urine pH 6.0 Urine Specific [place] 1.015 Urine Protein 30 mg/dL (NEG-TRACE) Urine Glucose (UA) Negative mg/dL (NEG) Urine Ketones (Stick) Negative mg/dL (NEG) Urine Blood Trace (NEG) Urine Nitrite Negative (NEG) Urine Bilirubin Negative (NEG) Urine Urobilinogen Dipstick 0.2 mg/dL (0.2 mg/dL) Urine Leukocyte Esterase Negative (NEG) Urine RBC 1-2 /HPF (0-2) Urine WBC 1-4 /HPF (0-4) Urine Squamous Epithelial Cells Occ /LPF Urine Bacteria 0 /HPF (0-FEW) Urine Mucus Slight /LPF Glucose (Fingerstick) 111 mg/dL (70-99) 151 mg/dL (70-99) Test 01/18/19 06:10 01/18/19 07:44 01/18/19 11:15 White Blood Count 11.0 x10^3/uL (4.0-11.0) Red Blood Count 3.93 x10^6/uL (4.30-5.70) Hemoglobin 11.7 g/dL (13.0-17.5) Hematocrit 35.2 % (39.0-53.0) Mean Corpuscular Volume 90 fL (79-100) Mean Corpuscular Hemoglobin 30 pg (25-35) Mean Corpuscular Hemoglobin Concent 33 g/dL (31-37) Red Cell Distribution Width 16.8 % (11.5-14.5) Platelet Count 264 x10^3/uL (140-400) Neutrophils (%) (Auto) 82 % (31-73) Lymphocytes (%) (Auto) 13 % (24-48) Monocytes (%) (Auto) 5 % (0-9) Eosinophils (%) (Auto) 0 % (0-3) Basophils (%) (Auto) 0 % (0-3) Neutrophils # (Auto) 9.0 x10^3/uL (1.8-7.7) Lymphocytes # (Auto) 1.4 x10^3/uL (1.0-4.8) Monocytes # (Auto) 0.6 x10^3/uL (0.0-1.1) Eosinophils # (Auto) 0.0 x10^3/uL (0.0-0.7) Basophils # (Auto) 0.0 x10^3/uL (0.0-0.2) Sodium Level 144 mmol/L (136-145) Potassium Level 3.9 mmol/L (3.5-5.1) Chloride Level 110 mmol/L (98-107) Carbon Dioxide Level 23 mmol/L (21-32) Anion Gap 11 (6-14) Blood Urea Nitrogen 19 mg/dL (8-26) Creatinine 1.3 mg/dL (0.7-1.3) Estimated GFR (Cockcroft-Gault) 53.7 BUN/Creatinine Ratio 15 (6-20) Glucose Level 122 mg/dL (70-99) Calcium Level 8.7 mg/dL (8.5-10.1) Total Bilirubin 0.7 mg/dL (0.2-1.0) Aspartate Amino Transf (AST/SGOT) 35 U/L (15-37) Alanine Aminotransferase (ALT/SGPT) 50 U/L (16-63) Alkaline Phosphatase 55 U/L (46-116) Total Protein 6.9 g/dL (6.4-8.2) Albumin 3.0 g/dL (3.4-5.0) Albumin/Globulin Ratio 0.8 (1.0-1.7) Prostate Specific Antigen 1.08 ng/mL (0.00-4.00) Glucose (Fingerstick) 114 mg/dL (70-99) 145 mg/dL (70-99) Review of Systems Review of Systems asleep, hard of hearing does not speak tajik, limited rOS Assessment and Plan Assessmemt and Plan Problems Medical Problems: (1) Abdominal pain Status: Acute (2) Blindness Status: Chronic (3) Colitis Status: Acute (4) Leukocytosis Status: Acute (5) Sepsis Status: Acute (6) T2DM (type 2 diabetes mellitus) Status: Chronic (7) Vasomotor nephropathy Status: Acute Comment Review of Relevant I have reviewed the following items venkatesh (where applicable) has been applied. Labs Laboratory Tests Test 01/17/19 12:28 01/17/19 13:25 01/17/19 17:35 01/17/19 20:46 White Blood Count 19.9 x10^3/uL (4.0-11.0) Red Blood Count 4.32 x10^6/uL (4.30-5.70) Hemoglobin 12.7 g/dL (13.0-17.5) Hematocrit 38.8 % (39.0-53.0) Mean Corpuscular Volume 90 fL (79-100) Mean Corpuscular Hemoglobin 30 pg (25-35) Mean Corpuscular Hemoglobin Concent 33 g/dL (31-37) Red Cell Distribution Width 16.5 % (11.5-14.5) Platelet Count 320 x10^3/uL (140-400) Neutrophils (%) (Auto) 89 % (31-73) Lymphocytes (%) (Auto) 6 % (24-48) Monocytes (%) (Auto) 5 % (0-9) Eosinophils (%) (Auto) 0 % (0-3) Basophils (%) (Auto) 0 % (0-3) Neutrophils # (Auto) 17.7 x10^3/uL (1.8-7.7) Lymphocytes # (Auto) 1.1 x10^3/uL (1.0-4.8) Monocytes # (Auto) 1.0 x10^3/uL (0.0-1.1) Eosinophils # (Auto) 0.0 x10^3/uL (0.0-0.7) Basophils # (Auto) 0.0 x10^3/uL (0.0-0.2) Segmented Neutrophils % 84 % (35-66) Band Neutrophils % 2 % (0-9) Lymphocytes % 8 % (24-48) Monocytes % 6 % (0-10) Platelet Estimate Adequate (ADEQUATE) Sodium Level 145 mmol/L (136-145) Potassium Level 4.6 mmol/L (3.5-5.1) Chloride Level 109 mmol/L (98-107) Carbon Dioxide Level 23 mmol/L (21-32) Anion Gap 13 (6-14) Blood Urea Nitrogen 28 mg/dL (8-26) Creatinine 1.5 mg/dL (0.7-1.3) Estimated GFR (Cockcroft-Gault) 45.5 BUN/Creatinine Ratio 19 (6-20) Glucose Level 119 mg/dL (70-99) Lactic Acid Level 1.7 mmol/L (0.4-2.0) Calcium Level 9.5 mg/dL (8.5-10.1) Total Bilirubin 0.4 mg/dL (0.2-1.0) Aspartate Amino Transf (AST/SGOT) 45 U/L (15-37) Alanine Aminotransferase (ALT/SGPT) 61 U/L (16-63) Alkaline Phosphatase 66 U/L (46-116) Troponin I Quantitative < 0.017 ng/mL (0.000-0.055) Total Protein 7.6 g/dL (6.4-8.2) Albumin 3.5 g/dL (3.4-5.0) Albumin/Globulin Ratio 0.9 (1.0-1.7) Lipase 69 U/L (73-393) Urine Color Yellow Urine Clarity Clear Urine pH 6.0 Urine Specific [place] 1.015 Urine Protein 30 mg/dL (NEG-TRACE) Urine Glucose (UA) Negative mg/dL (NEG) Urine Ketones (Stick) Negative mg/dL (NEG) Urine Blood Trace (NEG) Urine Nitrite Negative (NEG) Urine Bilirubin Negative (NEG) Urine Urobilinogen Dipstick 0.2 mg/dL (0.2 mg/dL) Urine Leukocyte Esterase Negative (NEG) Urine RBC 1-2 /HPF (0-2) Urine WBC 1-4 /HPF (0-4) Urine Squamous Epithelial Cells Occ /LPF Urine Bacteria 0 /HPF (0-FEW) Urine Mucus Slight /LPF Glucose (Fingerstick) 111 mg/dL (70-99) 151 mg/dL (70-99) Test 01/18/19 06:10 01/18/19 07:44 01/18/19 11:15 White Blood Count 11.0 x10^3/uL (4.0-11.0) Red Blood Count 3.93 x10^6/uL (4.30-5.70) Hemoglobin 11.7 g/dL (13.0-17.5) Hematocrit 35.2 % (39.0-53.0) Mean Corpuscular Volume 90 fL (79-100) Mean Corpuscular Hemoglobin 30 pg (25-35) Mean Corpuscular Hemoglobin Concent 33 g/dL (31-37) Red Cell Distribution Width 16.8 % (11.5-14.5) Platelet Count 264 x10^3/uL (140-400) Neutrophils (%) (Auto) 82 % (31-73) Lymphocytes (%) (Auto) 13 % (24-48) Monocytes (%) (Auto) 5 % (0-9) Eosinophils (%) (Auto) 0 % (0-3) Basophils (%) (Auto) 0 % (0-3) Neutrophils # (Auto) 9.0 x10^3/uL (1.8-7.7) Lymphocytes # (Auto) 1.4 x10^3/uL (1.0-4.8) Monocytes # (Auto) 0.6 x10^3/uL (0.0-1.1) Eosinophils # (Auto) 0.0 x10^3/uL (0.0-0.7) Basophils # (Auto) 0.0 x10^3/uL (0.0-0.2) Sodium Level 144 mmol/L (136-145) Potassium Level 3.9 mmol/L (3.5-5.1) Chloride Level 110 mmol/L (98-107) Carbon Dioxide Level 23 mmol/L (21-32) Anion Gap 11 (6-14) Blood Urea Nitrogen 19 mg/dL (8-26) Creatinine 1.3 mg/dL (0.7-1.3) Estimated GFR (Cockcroft-Gault) 53.7 BUN/Creatinine Ratio 15 (6-20) Glucose Level 122 mg/dL (70-99) Calcium Level 8.7 mg/dL (8.5-10.1) Total Bilirubin 0.7 mg/dL (0.2-1.0) Aspartate Amino Transf (AST/SGOT) 35 U/L (15-37) Alanine Aminotransferase (ALT/SGPT) 50 U/L (16-63) Alkaline Phosphatase 55 U/L (46-116) Total Protein 6.9 g/dL (6.4-8.2) Albumin 3.0 g/dL (3.4-5.0) Albumin/Globulin Ratio 0.8 (1.0-1.7) Prostate Specific Antigen 1.08 ng/mL (0.00-4.00) Glucose (Fingerstick) 114 mg/dL (70-99) 145 mg/dL (70-99) Laboratory Tests Test 01/17/19 12:28 01/17/19 13:25 01/17/19 17:35 01/17/19 20:46 White Blood Count 19.9 x10^3/uL (4.0-11.0) Red Blood Count 4.32 x10^6/uL (4.30-5.70) Hemoglobin 12.7 g/dL (13.0-17.5) Hematocrit 38.8 % (39.0-53.0) Mean Corpuscular Volume 90 fL (79-100) Mean Corpuscular Hemoglobin 30 pg (25-35) Mean Corpuscular Hemoglobin Concent 33 g/dL (31-37) Red Cell Distribution Width 16.5 % (11.5-14.5) Platelet Count 320 x10^3/uL (140-400) Neutrophils (%) (Auto) 89 % (31-73) Lymphocytes (%) (Auto) 6 % (24-48) Monocytes (%) (Auto) 5 % (0-9) Eosinophils (%) (Auto) 0 % (0-3) Basophils (%) (Auto) 0 % (0-3) Neutrophils # (Auto) 17.7 x10^3/uL (1.8-7.7) Lymphocytes # (Auto) 1.1 x10^3/uL (1.0-4.8) Monocytes # (Auto) 1.0 x10^3/uL (0.0-1.1) Eosinophils # (Auto) 0.0 x10^3/uL (0.0-0.7) Basophils # (Auto) 0.0 x10^3/uL (0.0-0.2) Segmented Neutrophils % 84 % (35-66) Band Neutrophils % 2 % (0-9) Lymphocytes % 8 % (24-48) Monocytes % 6 % (0-10) Platelet Estimate Adequate (ADEQUATE) Sodium Level 145 mmol/L (136-145) Potassium Level 4.6 mmol/L (3.5-5.1) Chloride Level 109 mmol/L (98-107) Carbon Dioxide Level 23 mmol/L (21-32) Anion Gap 13 (6-14) Blood Urea Nitrogen 28 mg/dL (8-26) Creatinine 1.5 mg/dL (0.7-1.3) Estimated GFR (Cockcroft-Gault) 45.5 BUN/Creatinine Ratio 19 (6-20) Glucose Level 119 mg/dL (70-99) Lactic Acid Level 1.7 mmol/L (0.4-2.0) Calcium Level 9.5 mg/dL (8.5-10.1) Total Bilirubin 0.4 mg/dL (0.2-1.0) Aspartate Amino Transf (AST/SGOT) 45 U/L (15-37) Alanine Aminotransferase (ALT/SGPT) 61 U/L (16-63) Alkaline Phosphatase 66 U/L (46-116) Troponin I Quantitative < 0.017 ng/mL (0.000-0.055) Total Protein 7.6 g/dL (6.4-8.2) Albumin 3.5 g/dL (3.4-5.0) Albumin/Globulin Ratio 0.9 (1.0-1.7) Lipase 69 U/L (73-393) Urine Color Yellow Urine Clarity Clear Urine pH 6.0 Urine Specific [place] 1.015 Urine Protein 30 mg/dL (NEG-TRACE) Urine Glucose (UA) Negative mg/dL (NEG) Urine Ketones (Stick) Negative mg/dL (NEG) Urine Blood Trace (NEG) Urine Nitrite Negative (NEG) Urine Bilirubin Negative (NEG) Urine Urobilinogen Dipstick 0.2 mg/dL (0.2 mg/dL) Urine Leukocyte Esterase Negative (NEG) Urine RBC 1-2 /HPF (0-2) Urine WBC 1-4 /HPF (0-4) Urine Squamous Epithelial Cells Occ /LPF Urine Bacteria 0 /HPF (0-FEW) Urine Mucus Slight /LPF Glucose (Fingerstick) 111 mg/dL (70-99) 151 mg/dL (70-99) Test 01/18/19 06:10 01/18/19 07:44 01/18/19 11:15 White Blood Count 11.0 x10^3/uL (4.0-11.0) Red Blood Count 3.93 x10^6/uL (4.30-5.70) Hemoglobin 11.7 g/dL (13.0-17.5) Hematocrit 35.2 % (39.0-53.0) Mean Corpuscular Volume 90 fL (79-100) Mean Corpuscular Hemoglobin 30 pg (25-35) Mean Corpuscular Hemoglobin Concent 33 g/dL (31-37) Red Cell Distribution Width 16.8 % (11.5-14.5) Platelet Count 264 x10^3/uL (140-400) Neutrophils (%) (Auto) 82 % (31-73) Lymphocytes (%) (Auto) 13 % (24-48) Monocytes (%) (Auto) 5 % (0-9) Eosinophils (%) (Auto) 0 % (0-3) Basophils (%) (Auto) 0 % (0-3) Neutrophils # (Auto) 9.0 x10^3/uL (1.8-7.7) Lymphocytes # (Auto) 1.4 x10^3/uL (1.0-4.8) Monocytes # (Auto) 0.6 x10^3/uL (0.0-1.1) Eosinophils # (Auto) 0.0 x10^3/uL (0.0-0.7) Basophils # (Auto) 0.0 x10^3/uL (0.0-0.2) Sodium Level 144 mmol/L (136-145) Potassium Level 3.9 mmol/L (3.5-5.1) Chloride Level 110 mmol/L (98-107) Carbon Dioxide Level 23 mmol/L (21-32) Anion Gap 11 (6-14) Blood Urea Nitrogen 19 mg/dL (8-26) Creatinine 1.3 mg/dL (0.7-1.3) Estimated GFR (Cockcroft-Gault) 53.7 BUN/Creatinine Ratio 15 (6-20) Glucose Level 122 mg/dL (70-99) Calcium Level 8.7 mg/dL (8.5-10.1) Total Bilirubin 0.7 mg/dL (0.2-1.0) Aspartate Amino Transf (AST/SGOT) 35 U/L (15-37) Alanine Aminotransferase (ALT/SGPT) 50 U/L (16-63) Alkaline Phosphatase 55 U/L (46-116) Total Protein 6.9 g/dL (6.4-8.2) Albumin 3.0 g/dL (3.4-5.0) Albumin/Globulin Ratio 0.8 (1.0-1.7) Prostate Specific Antigen 1.08 ng/mL (0.00-4.00) Glucose (Fingerstick) 114 mg/dL (70-99) 145 mg/dL (70-99) Medications Current Medications Sodium Chloride 1,000 ml @ 100 mls/hr Q10H IV Last administered on 01/17/19at 12:37; Start 01/17/19 at 12:30; Stop 01/17/19 at 22:29; Status DC Iohexol (Omnipaque 300 Mg/ml) 60 ml 1X ONCE IV Last administered on 01/17/19at 13:31; Start 01/17/19 at 13:30; Stop 01/17/19 at 13:31; Status DC Info (CONTRAST GIVEN -- Rx MONITORING) 1 each PRN DAILY PRN MC SEE COMMENTS; Start 01/17/19 at 13:30; Stop 01/19/19 at 13:29 Ciprofloxacin/ Dextrose 200 ml @ 200 mls/hr 1X ONCE IV Last administered on 01/17/19at 14:01; Start 01/17/19 at 15:00; Stop 01/17/19 at 15:59; Status DC Metronidazole 100 ml @ 100 mls/hr 1X ONCE IV Last administered on 01/17/19at 15:57; Start 01/17/19 at 15:00; Stop 01/17/19 at 15:59; Status DC Insulin Human Lispro (HumaLOG) 0-7 UNITS TIDWMEALS SQ ; Start 01/17/19 at 17:00 Dextrose (Dextrose 50%-Water Syringe) 12.5 gm PRN Q15MIN PRN IV SEE COMMENTS; Start 01/17/19 at 16:15 Metronidazole (Flagyl) 500 mg Q8HRS PO Last administered on 01/18/19at 05:19; Start 01/17/19 at 22:00; Stop 01/18/19 at 12:12; Status DC Polyethylene Glycol (miraLAX PACKET) 17 gm DAILY PO Last administered on 01/17/19at 17:58; Start 01/17/19 at 17:00; Stop 01/18/19 at 12:12; Status DC Docusate Sodium (Colace) 100 mg DAILY PO ; Start 01/17/19 at 17:00; Stop 01/17/19 at 16:24; Status DC Alprazolam (Xanax) 0.25 mg PRN TID PRN PO ANXIETY / AGITATION Last administered on 01/18/19at 10:18; Start 01/17/19 at 16:30 Amlodipine Besylate (Norvasc) 5 mg DAILY PO Last administered on 01/18/19at 10:18; Start 01/18/19 at 09:00 Aspirin (Ecotrin) 81 mg DAILY PO Last administered on 01/18/19 10:19; Start 01/18/19 at 09:00 Carvedilol (Coreg) 6.25 mg BIDWMEALS PO Last administered on 01/18/19 10:20; Start 01/17/19 at 17:00 Gabapentin (Neurontin) 100 mg PRN Q8HRS PRN PO NEUROPATHIC PAIN Last administered on 01/18/19 10:18; Start 01/17/19 at 16:30 Metronidazole (Flagyl) 500 mg Q8HRS PO ; Start 01/17/19 at 22:00; Status UNV Oxycodone/ Acetaminophen (Percocet 5/325) 1 tab PRN Q6HRS PRN PO PAIN Last administered on 01/18/19 10:19; Start 01/17/19 at 16:30 Simvastatin (Zocor) 20 mg HS PO Last administered on 01/17/19 21:31; Start 01/17/19 at 21:00 Triamcinolone Acetonide (Kenalog 0.1%) 1 dawit PRN TID PRN TP RASH; Start 01/17/19 at 16:30 Citalopram Hydrobromide (CeleXA) 20 mg DAILY PO Last administered on 01/18/19 10:20; Start 01/18/19 at 09:00 Famotidine (Pepcid) 20 mg DAILY PO Last administered on 01/18/19 10:19; Start 01/18/19 at 09:00 Tamsulosin HCl (Flomax) 0.4 mg QHS PO Last administered on 01/17/19 21:31; Start 01/17/19 at 21:00 Docusate Sodium (Colace) 100 mg DAILY PO ; Start 01/18/19 at 09:00; Stop 01/18/19 at 12:12; Status DC Ciprofloxacin/ Dextrose 200 ml @ 200 mls/hr Q12HR IV Last administered on 01/18/19at 10:21; Start 01/18/19 at 09:30 Allopurinol (Zyloprim) 200 mg DAILY PO ; Start 01/19/19 at 09:00 Metronidazole 100 ml @ 100 mls/hr Q8HRS IV ; Start 01/18/19 at 14:00; Status UNV Active Scripts Active Flagyl (Metronidazole) 500 Mg Tablet 500 Mg PO Q8HRS 10 Days Alprazolam 0.25 Mg Tablet 1 Tab PO TID PRN Escitalopram Oxalate 20 Mg Tablet 1 Tab PO DAILY 30 Days Reported Morphine Sulfate Er (Morphine Sulfate) 30 Mg Tablet.er 1 Tab PO BID Percocet 5-325 Mg Tablet (Oxycodone/Acetaminophen) 1 Each Tablet 1 Tab PO PRN Q6HRS PRN Famotidine 40 Mg Tablet 40 Mg PO DAILY Simvastatin 10 Mg Tablet 20 Mg PO HS Amlodipine Besylate 5 Mg Tablet 5 Mg PO DAILY Allopurinol 100 Mg Tablet 200 Mg PO DAILY Pepcid (Famotidine) 40 Mg Tablet 40 Mg PO HS Aspir 81 (Aspirin) 81 Mg Tablet. 1 Tab PO DAILY Gabapentin (Gabapentin) 100 Mg Capsule 100 Mg PO PRN Q8HRS PRN Coreg (Carvedilol) 6.25 Mg Tablet 1 Tab PO BID Triamcinolone Acetonide 0.1% Oint (Triamcinolone Acetonide) 15 Gm Oint...g. 1 Dawit TP TID PRN MIX WITH EUCERIN DIRECTED BY PHYSICIAN Vitals/I & O Vital Sign - Last 24 Hours 01/17/19 01/17/19 01/17/19 01/17/19 12:29 12:59 13:38 14:08 Pulse 94 92 92 Resp 21 17 16 B/P (MAP) 153/72 (99) 159/91 (113) 161/89 (113) 178/80 (112) Pulse Ox 96 95 O2 Delivery Room Air Room Air Room Air Room Air 01/17/19 01/17/19 01/17/19 01/17/19 14:38 15:08 15:38 16:08 Pulse 98 92 92 88 Resp 17 14 16 18 B/P (MAP) 147/70 (95) 149/95 (113) 147/106 (120) 175/89 (117) O2 Delivery Room Air Room Air Room Air Room Air 01/17/19 01/17/19 01/17/19 01/17/19 17:58 19:00 19:25 20:00 Temp 99.8 99.8 Pulse 88 83 Resp 16 B/P (MAP) 175/89 131/78 (95) Pulse Ox 97 O2 Delivery Room Air Room Air Room Air 01/17/19 01/17/19 01/17/19 01/18/19 21:30 22:30 23:00 03:00 Temp 97.8 98.2 97.8 98.2 Pulse 90 83 Resp 18 18 18 16 B/P (MAP) 140/80 (100) 136/76 (96) Pulse Ox 97 97 94 93 O2 Delivery Room Air Room Air Room Air Room Air 01/18/19 01/18/19 01/18/19 01/18/19 07:00 10:18 10:19 10:20 Temp 98.4 98.4 Pulse 91 91 91 Resp 18 20 B/P (MAP) 140/83 (102) 140/83 140/83 Pulse Ox 95 95 O2 Delivery Room Air Room Air 01/18/19 12:00 Temp 100.1 100.1 Pulse 90 Resp 16 B/P (MAP) 105/78 (87) Pulse Ox 95 O2 Delivery Room Air Intake and Output 01/17/19 01/17/19 01/18/19 15:00 23:00 07:00 Intake Total 840 ml 1920 ml Output Total 2300 ml Balance 840 ml -380 ml NISH TRIPLETT MD Jan 18, 2019 12:16
[2019-01-18] MEDS ORDERED: PIP/TAZO PER PHARMACY MC PRN (13:00)
[2019-01-18] MEDS ORDERED: FLU VAX QS 2019-20 (36MOS+)/PF 0.5 ML SYRINGE. VAX IM ONE (14:15)
--- NOTE | 2019-01-18 14:21 | NUR ---
SW following for discharge planning. Chart reviewed, discussed with RN. Pt is from home with . is currently admitted on the 2nd floor. Pt is on IV abx, PT/OT ordered. SW will continue to follow for discharge planning needs.
[2019-01-18 15:00] VITALS: BP 131/86
[2019-01-18] MEDS: PIPERACILLIN/TAZOBACTAM 2.25 GM in IV NORMAL SALINE 50ML 50 ML IV SCH (17:38)
[2019-01-18 19:00] VITALS: BP 118/73
[2019-01-18] MEDS: LACTOBACILLUS RHAMNOSUS GG 1 CAPSULE. PO SCH (21:00)
[2019-01-18] MEDS: SIMVASTATIN 20 MG TABLET PO SCH (21:00)
[2019-01-18] MEDS: TAMSULOSIN 0.4 MG CAP.ER.24H. PO SCH (21:00)
[2019-01-18 23:00] VITALS: BP 120/79
[2019-01-18 23:07] LABS: HEMOGLOBIN A1C 5.8 % (4.8-5.6)
[2019-01-19] MEDS: PIPERACILLIN/TAZOBACTAM 2.25 GM in IV NORMAL SALINE 50ML 50 ML IV SCH ×3 (00:04→12:05)
[2019-01-19 03:00] VITALS: BP 117/76
[2019-01-19 07:00] VITALS: BP 139/87
[2019-01-19] MEDS ORDERED: TAMS0.4C97 PO (07:56)
[2019-01-19] MEDS: INSULIN LISPRO 300 UNITS/3 ML VIAL. SQ SCH ×2 (08:00→12:11)
[2019-01-19] MEDS: oxyCODONE/APAP 5/325 1 TAB TABLET PO PRN (08:10)
[2019-01-19] MEDS ORDERED: ALLOPURINOL 100 MG TABLET. PO SCH (09:00)
[2019-01-19] MEDS: LACTOBACILLUS RHAMNOSUS GG 1 CAPSULE. PO SCH (10:36)
[2019-01-19] MEDS: CARVEDILOL 6.25 MG TABLET. PO SCH (10:36)
[2019-01-19] MEDS: CITALOPRAM 20 MG TABLET. PO SCH (10:36)
[2019-01-19] MEDS: ASPIRIN ENTERIC COATED 81 MG TABLET.DR. PO SCH (10:36)
[2019-01-19] MEDS: FAMOTIDINE 20 MG TABLET. PO SCH (10:36)
[2019-01-19] MEDS: amLODIPine BESYLATE 5 MG TABLET PO SCH (10:38)
[2019-01-19 11:00] VITALS: BP 125/77
--- NOTE | 2019-01-19 11:09 | NUR ---
SW following for discharge planning. Chart reviewed, discussed with RN. Pt is from home with family. PT/OT report pt is cared for by his family. No PT needs at this time due to pt being at baseline. RN advised no SW needs at this time. SW will continue to follow should any discharge needs arise.
--- NOTE | 2019-01-19 11:11 | PDOC3 ---
Discharge Summary Visit Information Date of Admission: Jan 17, 2019 Date of Discharge: Jan 19, 2019 Admitting Diagnosis Comment: colitis acute abd pain Hx c diff? vasomotor nephropathy, SOWMYA Dm2, w. blindness (x 2 yrs, catarcts? DM retinopathy? ) Hard of hearing urinary retention, on meds Final Diagnosis Problems Medical Problems: (1) Abdominal pain Status: Acute (2) Blindness Status: Chronic (3) Colitis Status: Acute (4) Leukocytosis Status: Acute (5) Sepsis Status: Acute (6) T2DM (type 2 diabetes mellitus) Status: Chronic (7) Vasomotor nephropathy Status: Acute Brief Hospital Course Allergies Allergies Coded Allergies Type Severity Reaction Last Updated Verified hydrocodone Allergy Intermediate Rash 01/06/17 Yes Vital Signs Vital Signs Date Time Temp Pulse Resp B/P (MAP) Pulse Ox O2 Delivery O2 Flow Rate FiO2 01/19/19 10:38 96 Room Air 01/19/19 10:38 98 139/87 01/19/19 07:00 97.9 18 97.9 Lab Results Laboratory Tests Test 01/17/19 12:28 01/17/19 13:25 01/17/19 17:35 01/17/19 20:46 White Blood Count 19.9 x10^3/uL (4.0-11.0) Red Blood Count 4.32 x10^6/uL (4.30-5.70) Hemoglobin 12.7 g/dL (13.0-17.5) Hematocrit 38.8 % (39.0-53.0) Mean Corpuscular Volume 90 fL (79-100) Mean Corpuscular Hemoglobin 30 pg (25-35) Mean Corpuscular Hemoglobin Concent 33 g/dL (31-37) Red Cell Distribution Width 16.5 % (11.5-14.5) Platelet Count 320 x10^3/uL (140-400) Neutrophils (%) (Auto) 89 % (31-73) Lymphocytes (%) (Auto) 6 % (24-48) Monocytes (%) (Auto) 5 % (0-9) Eosinophils (%) (Auto) 0 % (0-3) Basophils (%) (Auto) 0 % (0-3) Neutrophils # (Auto) 17.7 x10^3/uL (1.8-7.7) Lymphocytes # (Auto) 1.1 x10^3/uL (1.0-4.8) Monocytes # (Auto) 1.0 x10^3/uL (0.0-1.1) Eosinophils # (Auto) 0.0 x10^3/uL (0.0-0.7) Basophils # (Auto) 0.0 x10^3/uL (0.0-0.2) Segmented Neutrophils % 84 % (35-66) Band Neutrophils % 2 % (0-9) Lymphocytes % 8 % (24-48) Monocytes % 6 % (0-10) Platelet Estimate Adequate (ADEQUATE) Sodium Level 145 mmol/L (136-145) Potassium Level 4.6 mmol/L (3.5-5.1) Chloride Level 109 mmol/L (98-107) Carbon Dioxide Level 23 mmol/L (21-32) Anion Gap 13 (6-14) Blood Urea Nitrogen 28 mg/dL (8-26) Creatinine 1.5 mg/dL (0.7-1.3) Estimated GFR (Cockcroft-Gault) 45.5 BUN/Creatinine Ratio 19 (6-20) Glucose Level 119 mg/dL (70-99) Lactic Acid Level 1.7 mmol/L (0.4-2.0) Calcium Level 9.5 mg/dL (8.5-10.1) Total Bilirubin 0.4 mg/dL (0.2-1.0) Aspartate Amino Transf (AST/SGOT) 45 U/L (15-37) Alanine Aminotransferase (ALT/SGPT) 61 U/L (16-63) Alkaline Phosphatase 66 U/L (46-116) Troponin I Quantitative < 0.017 ng/mL (0.000-0.055) Total Protein 7.6 g/dL (6.4-8.2) Albumin 3.5 g/dL (3.4-5.0) Albumin/Globulin Ratio 0.9 (1.0-1.7) Lipase 69 U/L (73-393) Urine Color Yellow Urine Clarity Clear Urine pH 6.0 Urine Specific [place] 1.015 Urine Protein 30 mg/dL (NEG-TRACE) Urine Glucose (UA) Negative mg/dL (NEG) Urine Ketones (Stick) Negative mg/dL (NEG) Urine Blood Trace (NEG) Urine Nitrite Negative (NEG) Urine Bilirubin Negative (NEG) Urine Urobilinogen Dipstick 0.2 mg/dL (0.2 mg/dL) Urine Leukocyte Esterase Negative (NEG) Urine RBC 1-2 /HPF (0-2) Urine WBC 1-4 /HPF (0-4) Urine Squamous Epithelial Cells Occ /LPF Urine Bacteria 0 /HPF (0-FEW) Urine Mucus Slight /LPF Glucose (Fingerstick) 111 mg/dL (70-99) 151 mg/dL (70-99) Test 01/18/19 06:10 01/18/19 07:44 01/18/19 11:15 01/18/19 16:56 White Blood Count 11.0 x10^3/uL (4.0-11.0) Red Blood Count 3.93 x10^6/uL (4.30-5.70) Hemoglobin 11.7 g/dL (13.0-17.5) Hematocrit 35.2 % (39.0-53.0) Mean Corpuscular Volume 90 fL (79-100) Mean Corpuscular Hemoglobin 30 pg (25-35) Mean Corpuscular Hemoglobin Concent 33 g/dL (31-37) Red Cell Distribution Width 16.8 % (11.5-14.5) Platelet Count 264 x10^3/uL (140-400) Neutrophils (%) (Auto) 82 % (31-73) Lymphocytes (%) (Auto) 13 % (24-48) Monocytes (%) (Auto) 5 % (0-9) Eosinophils (%) (Auto) 0 % (0-3) Basophils (%) (Auto) 0 % (0-3) Neutrophils # (Auto) 9.0 x10^3/uL (1.8-7.7) Lymphocytes # (Auto) 1.4 x10^3/uL (1.0-4.8) Monocytes # (Auto) 0.6 x10^3/uL (0.0-1.1) Eosinophils # (Auto) 0.0 x10^3/uL (0.0-0.7) Basophils # (Auto) 0.0 x10^3/uL (0.0-0.2) Sodium Level 144 mmol/L (136-145) Potassium Level 3.9 mmol/L (3.5-5.1) Chloride Level 110 mmol/L (98-107) Carbon Dioxide Level 23 mmol/L (21-32) Anion Gap 11 (6-14) Blood Urea Nitrogen 19 mg/dL (8-26) Creatinine 1.3 mg/dL (0.7-1.3) Estimated GFR (Cockcroft-Gault) 53.7 BUN/Creatinine Ratio 15 (6-20) Glucose Level 122 mg/dL (70-99) Hemoglobin A1c 5.8 % (4.8-5.6) Calcium Level 8.7 mg/dL (8.5-10.1) Total Bilirubin 0.7 mg/dL (0.2-1.0) Aspartate Amino Transf (AST/SGOT) 35 U/L (15-37) Alanine Aminotransferase (ALT/SGPT) 50 U/L (16-63) Alkaline Phosphatase 55 U/L (46-116) Total Protein 6.9 g/dL (6.4-8.2) Albumin 3.0 g/dL (3.4-5.0) Albumin/Globulin Ratio 0.8 (1.0-1.7) Prostate Specific Antigen 1.08 ng/mL (0.00-4.00) Glucose (Fingerstick) 114 mg/dL (70-99) 145 mg/dL (70-99) 159 mg/dL (70-99) Test 01/18/19 20:31 01/19/19 09:02 Glucose (Fingerstick) 107 mg/dL (70-99) 123 mg/dL (70-99) Laboratory Tests Test 01/18/19 11:15 01/18/19 16:56 01/18/19 20:31 01/19/19 09:02 Glucose (Fingerstick) 145 mg/dL (70-99) 159 mg/dL (70-99) 107 mg/dL (70-99) 123 mg/dL (70-99) Brief Hospital Course Mr. Ling is a 74 old who has been in [place] x 30 yrs but doesnt speak the language, family takes care of him, admitted for colitis and co managed with GI, Was getting PCN based abx plus flagyl. NOn toxic, NO pt needs, no more diarrhea, i ordered c diff bec pharmacy was able to get a hx of c diff, but no specimen - seems like no more loose stools, HOme today with PO flagyl and family and PPI CLeraed form GI dw family at bedside, FULL CODE Discharge Information Condition at Discharge: Improved, Stable Disposition/Orders: D/C to Home Scheduled Allopurinol (Allopurinol) 100 Mg Tablet, 200 MG PO DAILY for gout, (Reported) Entered as Reported by: SCOTT JUÁREZ on 01/02/171111 Last Action: Continued on 01/18/19 09 by NISH TRIPLETT Amlodipine Besylate (Amlodipine Besylate) 5 Mg Tablet, 5 MG PO DAILY, (Reported) Entered as Reported by: SCOTT JUÁREZ on 01/02/171111 Last Action: Continued on 01/17/191617 by KASIA ANDRADE Aspirin (Aspir 81) 81 Mg Tablet.dr, 1 TAB PO DAILY, #90 Ref 3 (Reported) Entered as Reported by: SCOTT JUÁREZ on 01/02/171111 Last Action: Continued on 01/17/191617 by KASIA ANDRADE Carvedilol (Coreg ) 6.25 Mg Tablet, 1 TAB PO BID, #180 Ref 3 (Reported) Entered as Reported by: SCOTT JUÁREZ on 01/02/171111 Last Action: Continued on 01/17/191617 by KASIA ANDRADE Escitalopram Oxalate (Escitalopram Oxalate) 20 Mg Tablet, 1 TAB PO DAILY for 30 Days, #30 Ref 5 Prescribed by: EKATERINA STUBBS on 02/13/17851 Last Action: Converted on 01/17/191617 by KASIA ANDRADE Famotidine (Famotidine) 40 Mg Tablet, 40 MG PO DAILY, (Reported) Entered as Reported by: SCOTT JUÁREZ on 01/02/171111 Last Action: Converted on 01/17/191617 by KASIA ANDRADE Metronidazole (Flagyl) 500 Mg Tablet, 500 MG PO Q8HRS for 10 Days, #30 Prescribed by: EKATERINA STUBBS on 02/13/17851 Last Action: Continued on 01/17/191617 by KASIA ANDRADE Morphine Sulfate (Morphine Sulfate Er) 30 Mg Tablet.er, 1 TAB PO BID for pain, #60 (Reported) Entered as Reported by: SHASHANK MARTINEZ on 05/04/18 0103 Last Action: HELD on 01/17/191617 by KASIA ANDRADE Simvastatin (Simvastatin) 10 Mg Tablet, 20 MG PO HS for FOR CHOLESTEROL, #30 Ref 0 (Reported) Entered as Reported by: SCOTT JUÁREZ on 01/02/171111 Last Action: Continued on 01/17/191617 by KASIA ANDRADE Tamsulosin Hcl (Flomax) 0.4 Mg Cap.er.24h, 0.4 MG PO QHS for bph, #30 Prescribed by: NISH TRIPLETT on 01/19/19 0756 Scheduled PRN Alprazolam (Alprazolam) 0.25 Mg Tablet, 1 TAB PO TID PRN for ANXIETY / AGITAT ION, #60 Prescribed by: EKATERINA STUBBS on 02/13/17 0852 Last Action: Continued on 01/17/191617 by KASIA ANDRADE Gabapentin (Gabapentin ) 100 Mg Capsule, 100 MG PO PRN Q8HRS PRN for PAIN, (Reported) Entered as Reported by: SCOTT JUÁREZ on 01/02/171111 Last Action: Continued on 01/17/191617 by KASIA ANDRADE Oxycodone/Apap 5-325 (Percocet 5-325 Mg Tablet ) 1 Each Tablet, 1 TAB PO PRN Q6HRS PRN for PAIN, Ref 0 (Reported) Entered as Reported by: SCOTT JUÁREZ on 01/02/171111 Last Action: Continued on 01/17/191617 by KASIA ANDRADE Triamcinolone Acetonide (Triamcinolone Acetonide 0.1% Oint) 15 Gm Oint...g., 1 SANDRA TP TID PRN for RASH, #1 (Reported) MIX WITH EUCERIN DIRECTED BY PHYSICIAN Entered as Reported by: SCOTT JUÁREZ on 01/02/171111 Last Action: Continued on 01/17/191617 by KASIA ANDRADE Discontinued Medications Famotidine (Pepcid) 40 Mg Tablet, 40 MG PO HS, (Reported) Entered as Reported by: SCOTT JUÁREZ on 01/02/171111 Last Action: HELD on 01/17/191617 by NISH DOW MD Jan 19, 2019 11:11
--- NOTE | 2019-01-19 11:36 | PDOC ---
Subjective: Subjective: Family present - says tolerating PO w/o abd pain. No stools today. Objective: Objective: D/w nurse - has been sleeping this morning. Vital Signs: Vital Signs Date Time Temp Pulse Resp B/P (MAP) Pulse Ox O2 Delivery O2 Flow Rate FiO2 01/19/19 10:38 96 Room Air 01/19/19 10:38 98 139/87 01/19/19 07:00 97.9 18 97.9 Labs: Laboratory Tests Test 01/18/19 16:56 01/18/19 20:31 01/19/19 09:02 01/19/19 11:16 Glucose (Fingerstick) 159 mg/dL 107 mg/dL 123 mg/dL 162 mg/dL PE: GEN: NAD LUNGS: room air HEART: RRR ABD: NABS, S/ND/NT NEURO/PSYCH: awakens briefly A/P: Abd pain, constipation - resolved -- DC per primary. Discussed treatments for constipation w/ family. MARISABEL SUBRAMANIAN Jan 19, 2019 11:36
--- NOTE | 2019-01-19 13:31 | NUR ---
Discharge Note: TRACEY PLATT Discharge instructions and discharge home medications reviewed with Family Member and a copy given. All questions have been answered and understanding verbalized. The following instructions and handouts were given: discharge instructions, new prescriptions, education, and follow up recommendations. Discontinued lines and drains: Peripheral IV discontinued intact. Patient discharged to Home or Self Care with Family Member via Wheelchair off unit by [employer].
== END 2019-01-19 13:34 | disposition home or self-care (01) | DRG 871 ==
LOC: ER 10:30 → 5 SOUTH 14:55
PROVIDERS: ADMIT Internal Medicine; ATTEND Internal Medicine
DX: A41.9 Sepsis, unspecified organism (principal); N17.0 Acute kidney failure with tubular necrosis; E11.22 Type 2 diabetes mellitus with diabetic chronic kidney disease; E11.36 Type 2 diabetes mellitus with diabetic cataract; E78.5 Hyperlipidemia, unspecified; F32.9 Major depressive disorder, single episode, unspecified; F41.9 Anxiety disorder, unspecified; H91.90 Unspecified hearing loss, unspecified ear; Z79.899 Other long term (current) drug therapy; I12.9 Hypertensive chronic kidney disease with stage 1 through stage 4 chronic kidney disease, or unspecified chronic kidney disease; K52.9 Noninfective gastroenteritis and colitis, unspecified; K59.00 Constipation, unspecified; K81.1 Chronic cholecystitis; M10.9 Gout, unspecified; N18.9 Chronic kidney disease, unspecified; N28.1 Cyst of kidney, acquired; N40.1 Benign prostatic hyperplasia with lower urinary tract symptoms; Z79.82 Long term (current) use of aspirin; Z90.49 Acquired absence of other specified parts of digestive tract; K21.9 Gastro-esophageal reflux disease without esophagitis; Z88.8 Allergy status to other drugs, medicaments and biological substances
CPT/HCPCS: 36415; 74177; 80053; 81001; 82962; 83036; 83605; 83690; 84484; 85007; 85025; 90471; 90686; 93005; 96365; 96366; 96368; G0103; J0744; J1815; J2543; J3490; J7030; Q9967; 99285-25; G0378

== ENCOUNTER 2019-06-19 05:27 | Emergency (ER) | payer MEDICAID ==
[~2019-06-19] VITALS: Ht 170.2 cm; Wt 77.2 kg
[~2019-06-19 05:27] MED LIST changes: +TAMS0.4C97 PO
--- NOTE | 2019-06-19 05:54 | PHYS DOC ---
Past Medical History Past Medical History: Anxiety, GERD, Hypertension, Other Additional Past Medical Histor: DDD, GOUT, BLIND, CHEVAK Past Surgical History: Other Additional Past Surgical Histo: L. ARM AMPUTATION, NECK,R LEG ORIF Smoking Status: Former Smoker Alcohol Use: None Drug Use: None Adult General Chief Complaint Chief Complaint: CPR/FULL ARREST HPI HPI Patient is a 74-year-old male with multiple medical problems who had an unwitnessed fall down multiple steps and when he was found approximate 5 minutes after the fall he was not breathing or responsive. EMS was called and on their arrival approximately 5 minutes later the patient was found to be pulseless and apneic. ACLS protocol including chest compressions were started the patient was given a total of 5 rounds of epinephrine and remained in asystole. The patient was in asystole on arrival here for between 45 minutes and an hour.] Review of Systems Review of Systems Review of systems is unobtainable secondary to the fact patient was DOA. Allergies Allergies Allergies Coded Allergies Type Severity Reaction Last Updated Verified hydrocodone Allergy Intermediate Rash 01/06/17 Yes Physical Exam Physical Exam On arrival to the emergency department the patient was mottled and cool to touch had an [place] in place was apneic and pulseless. Given the duration of ACLS protocol the patient was immediately pronounced at 5:30[] EKG EKG [] Radiology/Procedures Radiology/Procedures [] Course & Med Decision Making Course & Med Decision Making Pertinent Labs and Imaging studies reviewed. (See chart for details) [] Dragon Disclaimer Dragon Disclaimer This electronic medical record was generated, in whole or in part, using a voice recognition dictation system. Departure Departure Impression: Primary Impression: D.O.A. ( on arrival) Disposition: 20 Admitting Physician: Dania Cheek Condition: Referrals: DANIA CHEEK MD (PCP) MIGUEL IVY DO Jun 19, 2019 05:54
== END 2019-06-19 09:02 | disposition expired ==
LOC: ER 05:27
DX: I46.9 Cardiac arrest, cause unspecified (principal); F41.9 Anxiety disorder, unspecified; K21.9 Gastro-esophageal reflux disease without esophagitis; I10 Essential (primary) hypertension; Z87.891 Personal history of nicotine dependence; Z98.890 Other specified postprocedural states; Z88.5 Allergy status to narcotic agent
CPT/HCPCS: 99285